=== PATIENT | female | born 1940 | race Caucasian/White ===

== ENCOUNTER 2016-06-07 19:26 | Emergency (ER) | payer MEDICARE ==
[2016-06-07 20:00] VITALS: BP 160/70
[2016-06-07] MEDS ORDERED: Amoxicillin/Clavulanate TAB* 500 MG PO ONE (20:13)
--- NOTE | 2016-06-07 20:16 | UC ---
Skin Complaint HPI - HPI Summary HPI Summary: pt presents with c/o left sided face pain and rash. Pt reports that she had a "sore" in left nostril that she had been treting at home with topical antibiotic ointment. Pt had colpocleisis surgery on 06/01/16. Is currently taking amoxicilin 500 mg Po q 12 hours. C/O of worsening pain and swelling and "hard lump" on left side of face. pain is now radiating along cheek to left ear. Pt has a past history of shingles. - History of Current Complaint Chief Complaint: UCSkin Time Seen by Provider: 06/07/16 19:56 Stated Complaint: RASH ON FACE Hx Obtained From: Patient ?: No Onset/Duration: Gradual Onset, Lasting Days Skin Exposure Onset/Duration: Days Ago Timing: Constant Onset Severity: Mild Current Severity: Moderate Location: Discrete, Face Character: Swelling, Redness, Painful Aggravating: Touch Alleviating: Cold Compresses Associated Signs & Symptoms: Positive: Tenderness Related History: Other: - recent surgery, under genral anesthesia - Allergy/Home Medications Allergies/Adverse Reactions: Allergies Allergy/AdvReac Type Severity Reaction Status Date / Time Codeine Allergy Intermediate shock Verified 06/07/16 19:33 Acetaminophen [From Tylenol] AdvReac Intermediate Nausea Verified 06/07/16 19:33 Levofloxacin [From Levaquin] AdvReac Intermediate cramps Verified 06/07/16 19:33 Meperidine [From Demerol HCl] AdvReac Intermediate hyper Verified 06/07/16 19:33 Home Medications: Home Medications Amoxicillin CAP* 1 cap DAILY 06/07/16 [History Confirmed 06/07/16] Enoxaparin(*) [Lovenox(*)] 70 mg INJ DAILY 06/07/16 [History Confirmed 06/07/16] Review of Systems Constitutional: Negative Skin: Rash, Other - tenderness ENT: Negative Respiratory: Negative Cardiovascular: Negative Gastrointestinal: Negative, Abdominal Pain - post op Genitourinary: Negative Motor: Negative Neurovascular: Negative Musculoskeletal: Negative Neurological: Negative Psychological: Negative All Other Systems Reviewed And Are Negative: Yes PMH/Surg Hx/FS Hx/Imm Hx Previously Healthy: No - see pmh Endocrine History Of: Denies: Diabetes Cardiovascular History Of: Reports: Cardiac Disorders - aortic valve, mitral valve replacement, Hypertension Denies: Congestive Heart Failure Respiratory History Of: Denies: Asthma GI/ History Of: Reports: Gall Bladder Disease - Surgical History Surgical History: Yes Surgery Procedure, Year, and Place: Choley, appy, tonsils, hyster, valve replacement x2, eye surgery. colpocleisis - Family History Known Family History: Positive: Cardiac Disease, Hypertension - Social History Alcohol Use: None Substance Use Type: None Smoking Status (MU): Never Smoked Tobacco - Immunization History Most Recent Influenza Vaccination: 2015 Most Recent Tetanus Shot: 2012 Most Recent Pneumonia Vaccination: within last 10 years Physical Exam Triage Information Reviewed: Yes Appearance: Pain Distress - mild Vital Signs: Initial Vital Signs Temp 98.3 F 06/07/16 19:41 Pulse 71 06/07/16 19:41 Resp 18 06/07/16 19:41 BP 182/72 06/07/16 19:41 Pulse Ox 100 06/07/16 19:41 Vital Signs Reviewed: Yes Eye Exam: Normal Neck exam: Normal Respiratory Exam: Normal Cardiovascular Exam: Other Cardiovascular: Positive: Murmur:Sys:Grade _?_/ Abdomen Description: Positive: Other: - multiple bruises on abdomen Musculoskeletal Exam: Normal Neurological Exam: Normal Psychological Exam: Normal Skin Exam: Other Skin: Positive: rashes, Other - palpable small, pea size, tender area on left facial cheek, tenderness with palpation on left side of cheek, that radiates to left ear and neck. Course/Dx - Course Course Of Treatment: I discussed with the pt the possibility of this being shingles. The pt became visibly unhappy and insisted that she had chronic sinusitis and was concerned that the "sore" in the left nostril has spread. Pt described that her sinuses felt as if they were "burning" inside. - Differential Diagnoses - Skin Complaint Differential Diagnoses: Abscess, Cellulitis - Diagnoses Provider Diagnoses: abscess, cystic acne. shingles. Discharge - Discharge Plan Condition: Stable Disposition: HOME Prescriptions: Amoxicillin/Clavulanate TAB* [Augmentin TAB 500 mg*] 500 mg PO BID #10 tab Patient Education Materials: Abscess (ED) Referrals: Alyson Escobar MD [Primary Care Provider] - Additional Instructions: Please follow up with your pCP as soon as possible. If symptoms worsen, please return to clinic or seek care at the closest health care facility.
== END 2016-06-07 20:35 | disposition home or self-care (01) ==
LOC: UCEAST 19:26
DX: L02.01 Cutaneous abscess of face (principal); L70.0 Acne vulgaris; B02.9 Zoster without complications; Z88.5 Allergy status to narcotic agent; Z88.6 Allergy status to analgesic agent; Z88.1 Allergy status to other antibiotic agents; Z95.2 Presence of prosthetic heart valve; Z90.49 Acquired absence of other specified parts of digestive tract
CPT/HCPCS: 99212; A9270-GY; G0463

== ENCOUNTER 2016-07-25 22:31 | Emergency (ER) | payer MEDICARE ==
[2016-07-25 23:56] LABS: Hematocrit 43 % (35-47); Hemoglobin 14.1 g/dl (12.0-16.0); Mean Corpuscular HGB Conc 33 g/dl (31-36); Mean Corpuscular Hemoglobin 28 pg (27-31); Mean Corpuscular Volume 85 fL (80-97); Mean Platelet Volume 10 um3 (7.4-10.4); Red Blood Count 5.08 10^6/ul (4.0-5.4); Red Cell Distribution Width 14 % (10.5-15); White Blood Count 9.4 10^3/ul (3.5-10.8)
[2016-07-26] MEDS ORDERED: Nitroglycerin 2% OINT* 1 GM PAK ONE (00:07)
[2016-07-26] MEDS ORDERED: Nitroglycerin 2% OINT* 1 GM PAK TOPICAL ONE (00:07)
[2016-07-26 00:15] LABS: Albumin 4.3 g/dL (3.2-5.2); BUN/Creatinine Ratio 21.9 (8-20); Calcium 9.4 mg/dL (8.6-10.3); EGFR Non-African American 90.2 (>60); Globulin 3.4 g/dL (2-4); Magnesium 2.2 mg/dL (1.9-2.7); Potassium 3.7 mmol/L (3.5-5.0); Total Bilirubin 0.7 mg/dL (0.2-1.0); Total Protein 7.7 g/dL (6.4-8.9)
[2016-07-26 00:16] LABS: Troponin I 0.01 ng/mL (<0.04)
--- NOTE | 2016-07-26 03:10 | ED ---
Gennaro Mckinley Adam, scribed for Truman Sebastian on 07/25/16 at 2323 . HPI Chest Pain - HPI Summary HPI Summary: Pt is a 76 year old female presenting with CP since 17:00. She states that she has the pain when she ambulates. She believes that the pain is due to indigestion. She states that every time she eats her BP rises. Pt states that she is scheduled for a stress test and cardiac catheterization "soon." Her last stress test was in 2013. She denies tobacco and alcohol use. FMHx of CHF (father ). - History of Current Complaint Chief Complaint: EDChestPainROMI Time Seen by Provider: 07/25/16 23:17 Hx Obtained From: Patient Onset/Duration: Started Hours Ago, Atraumatic, Still Present Timing: Constant Initial Severity: Moderate Current Severity: Moderate Chest Pain Location: Diffuse Chest Pain Radiates: No Character: Other: - Feels like indigestion Aggravating Factor(s): Other: - Food Alleviating Factor(s): Nothing Associated Signs and Symptoms: Positive: Negative - Allergy/Home Medications Allergies/Adverse Reactions: Allergies Allergy/AdvReac Type Severity Reaction Status Date / Time Codeine Allergy Intermediate shock Verified 07/26/16 00:03 Acetaminophen [From Tylenol] AdvReac Intermediate Nausea Verified 07/26/16 00:03 Levofloxacin [From Levaquin] AdvReac Intermediate cramps Verified 07/26/16 00:03 Meperidine [From Demerol HCl] AdvReac Intermediate hyper Verified 07/26/16 00:03 PMH/Surg Hx/FS Hx/Imm Hx Endocrine/Hematology History: Denies: Hx Diabetes Cardiovascular History: Reports: Hx Angina, Hx Hypertension, Hx Valvular Heart Disease - valve replacements, Other Cardiovascular Problems/Disorders Denies: Hx Congestive Heart Failure Respiratory History: Denies: Hx Asthma GI History: Reports: Hx Gall Bladder Disease, Hx Irritable Bowel, Other GI Disorders - APPENDECTOMY, CHOLECYSTECTOMY Musculoskeletal History: Reports: Other Musculoskeletal History - Fibromyalgia Denies: Hx Scoliosis Sensory History: Reports: Hx Contacts or Glasses, Hx Glaucoma Opthamlomology History: Reports: Hx Contacts or Glasses, Hx Glaucoma Neurological History: Denies: Other Neuro Impairments/Disorders - Surgical History Surgery Procedure, Year, and Place: Choley, appy, tonsils, hyster, valve replacement x2, eye surgery. colpocleisis - Immunization History Date of Tetanus Vaccine: PT STATES UNSURE Date of Influenza Vaccine: 2013 Infectious Disease History: Reports: Hx Shingles, History Other Infectious Disease - rheumatic fever Denies: Traveled Outside the [place] in Last 30 Days - Family History Known Family History: Positive: Cardiac Disease, Hypertension, Other - CHF - Social History Occupation: Retired Lives: Alone Alcohol Use: None Hx Substance Use: No Substance Use Type: Reports: None Hx Tobacco Use: No Smoking Status (MU): Never Smoked Tobacco Review of Systems Positive: Chest Pain Positive: Other - Indigestion All Other Systems Reviewed And Are Negative: Yes Physical Exam Triage Information Reviewed: Yes Vital Signs Reviewed: Yes Appearance: Positive: Well-Appearing, No Pain Distress Skin: Positive: Warm, Skin Color Reflects Adequate Perfusion, Dry Head/Face: Positive: Normal Head/Face Inspection Eyes: Positive: EOMI, MATTI ENT: Positive: Normal ENT inspection Neck: Positive: Supple, Nontender Respiratory/Lung Sounds: Positive: Clear to Auscultation, Breath Sounds Present Cardiovascular: Positive: RRR, Pulses are Symmetrical in both Upper and Lower Extremities Abdomen Description: Positive: Nontender, Soft Bowel Sounds: Positive: Present Musculoskeletal: Positive: Normal, Strength/ROM Intact Diagnostics - Laboratory Result Diagrams: 07/25/16 23:45 07/25/16 23:45 Lab Statement: Any lab studies that have been ordered have been reviewed, and results considered in the medical decision making process. - Radiology CXR Xray Interpretation: No Acute Changes Radiology Interpretation Completed By: ED Physician - EKG 22:41 Cardiac Rate: NL - 66 BPM EKG Rhythm: Sinus Rhythm EKG Interpretation: ST changes in anterior and lateral leads EKG Comparison: No Significant Change - Additional Comments Diagnostic Additional Comments: B-Natriuretic Peptide - 143 Troponin I - 0.01 Chest Pain Course/Dx - Course Course Of Treatment: 00:05 - Dr. Meadows (hospitalist) is aware of the patient. Dr. Meadows accepts admission of the patient. - Diagnoses Provider Diagnoses: Chest pain, Rule out RI Discharge - Discharge Plan Condition: Stable Disposition: ADMITTED TO [facility] documentation as recorded by the Gennaro hartmann Adam accurately reflects the service I personally performed and the decisions made by , Truman Sebastian.
[2016-07-26] MEDS ORDERED: Al Hydrox/Mg Hydrox/Simet LIQ* 30 ML UDC ONE (04:16)
[2016-07-26] MEDS ORDERED: Lidocaine 2% VISCOUS* 15 ML UDC ONE (04:16)
[2016-07-26] MEDS ORDERED: Lidocaine 2% VISCOUS* 15 ML UDC PO ONE (04:18)
[2016-07-26] MEDS ORDERED: Al Hydrox/Mg Hydrox/Simet LIQ* 30 ML UDC PO ONE (04:18)
--- NOTE | 2016-07-26 06:06 | ED ---
Gennaro Mckinley Adam, scribed for Truman Sebastian on 07/26/16 at 0605 . Progress - Progress Note Progress Note: 06:05 - Dr. Meadows (hospitalist) consult done in er and recommends that the patient be discharged because he thinks that the patient has no acute coronary syndrome at present. Course/Dx - Diagnoses Provider Diagnoses: Chest pain The documentation as recorded by the Gennaro hartmann Adam accurately reflects the service I personally performed and the decisions made by Jaz miramontes Emmanuel.
[2016-07-26] MEDS ORDERED: Pantoprazole IV* 40 MG IV ONE (06:22)
[2016-07-26] MEDS ORDERED: Pantoprazole IV* 40 MG ONE (06:23)
--- NOTE | 2016-07-26 06:27 | ED ---
Gennaro Mckinley Adam, scribed for Truman Sebastian on 07/26/16 at 0624 . Progress - Progress Note Progress Note: 06:20 - Patient is still having pain, so she will be signed out to Dr. Burdick at 07:00. A CT of the abdomen/pelvis has been ordered. Course/Dx - Diagnoses Provider Diagnoses: Chest pain, Abdominal pain The documentation as recorded by the Gennaro hartmann Adam accurately reflects the service I personally performed and the decisions made by Jaz miramontes Emmanuel.
[2016-07-26] MEDS ORDERED: Iohexol 350* (CONTRAST) 500 ML MDV IV ONE ×2 (06:38→07:22)
--- NOTE | 2016-07-26 08:35 | RAD ---
Indication: Chest pain. Contrast: Administered 200.2 ml of OMNIPAQUE 350 mgi/ml CTA of the chest, abdomen and pelvis was performed after IV contrast administration. Coronal, sagittal and 3-D reconstructive images were obtained. The origins of the great vessels are unremarkable. There is an atherosclerotic aorta noted. Mild ectasia of the ascending aorta is noted measuring up to 4.0 cm AP x 4.0 cm in width at the level of the right main pulmonary artery. Patient is status post aortic valve replacement. The descending aorta is normal measuring up to 2.2 x 2.7 cm. No evidence of aortic dissection is noted. The abdominal aorta demonstrates calcifications at the origins of the celiac axis, superior mesenteric artery and the renal arteries bilaterally. The common iliac arteries demonstrates normal bifurcation with atherosclerosis. No aneurysmal dilatation is noted. External iliac arteries are otherwise unremarkable. The pulmonary artery is well opacified. There are no filling defects present to suggest pulmonary embolus. The trachea and major bronchi appear patent. There is a nodule in the left upper lobe posteriorly measuring approximately 4 mm which is unchanged from previous exam of July 20, 2013 and is likely a benign finding. Vague appearing nodule is noted in the left lower lobe posteriorly also unchanged from previous exam measuring up to 8 mm. No alveolar consolidation is noted. Inferior thyroid lobes are unremarkable. No mediastinal or hilar adenopathy is noted. The liver is normal in size. It is diffusely decreased in density consistent with hepatic steatosis. The spleen is normal in size. The patient is status post cholecystectomy. The pancreas demonstrates no mass or pancreatic duct dilatation. Bilateral adrenal hyperplasia is noted. The kidneys demonstrate symmetric nephrograms with multiple low density lesions in the kidney. A hyperdense lesion is noted in the posterior cortex of left kidney. This was present on 2013 and measures approximately 16 mm. This previously measured 13 mm and has increased in size since previous exam. Correlation with ultrasound or MRI of the kidneys on a nonemergent basis may be helpful. Bilateral tiny cortical cysts are noted. No hydronephrosis of either kidney is noted. No retroperitoneal lymphadenopathy is noted. Small bowel demonstrates no abnormal dilatation. Colon is filled with stool. Urinary bladder is otherwise unremarkable. Uterus and ovaries are unremarkable. No inguinal hernias are noted. There is a small periumbilical hernia containing omentum. IMPRESSION: THERE IS NO EVIDENCE OF AORTIC DISSECTION PRESENT. MILD ECTASIA OF THE ASYMMETRY AORTA MEASURING 4 CM AT THE LEVEL OF THE RIGHT PULMONARY ARTERY APPEARS TO BE SIMILAR TO THAT SEEN ON JULY 20, 2013. PULMONARY NODULES IN THE LEFT UPPER LOBE AND LEFT LOWER LOBE ARE UNCHANGED AND ARE LIKELY BENIGN FINDINGS. THERE IS A HYPERDENSE NODULE IN THE POSTERIOR CORTEX OF THE LEFT KIDNEY MEASURING 16 MM IN WIDTH. THIS PREVIOUSLY MEASURED 13 MM. I CANNOT TOTALLY EXCLUDE A SOLID RENAL LESION. CORRELATION WITH ULTRASOUND AND/OR MRI THE KIDNEYS COULD BE PERFORMED CLINICALLY WARRANTED. NO EVIDENCE OF ABDOMINAL AORTIC ANEURYSM IS NOTED ALTHOUGH ATHEROSCLEROSIS AND CALCIFICATIONS OF THE ORIGINS OF THE CELIAC AXIS, SUPERIOR MESENTERIC ARTERY AND BOTH RENAL ARTERIES ARE PRESENT. 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
--- NOTE | 2016-07-26 09:11 | RAD ---
Indication: Chest pain. Single frontal view of the chest performed at 2350 hours was reviewed. Comparison is made with previous exam dated February 25, 2016. No mediastinal shift is noted. Heart is of normal size and configuration. Lung millan appear clear. Patient status post aortic valve replacement. No alveolar consolidation is noted. No significant change is noted since February 25, 2016. IMPRESSION: NO ACTIVE CARDIOPULMONARY DISEASE IS NOTED.
[2016-07-26] MEDS ORDERED: Ondansetron INJ* 2 MG/ML VIAL IV ONE (09:33)
--- NOTE | 2016-07-26 09:39 | PN ---
Hospitalist Progress Note F/U on previous consult done by Dr. Meadows Patient seen after CT scan that was relatively unremarkable. States pain began at 5 PM last night. She had some improvement at home with Gas-X. She says pain was improved after nitro and GI cocktail however still present. Mostly in epigastric area, was previously more significant in the chest. Pain in both areas are reproducible. Has hx of IBS and chronic GI issues. She has been having intermittent palpitations since her vaginal prolapse surgery 7 weeks and this is being worked up as an outpatient with Dr. Ho (her pocket secretary assembler). She came to the hospital because she was having the palpitations along with the pain and was worried about her heart. She said she has been very anxious lately due to her ongoing cardiac work-up for the palpitations. She has never been on an acid suppressing medication and has never had an upper endoscopy. She reports continued palpitations here in the hospital but tele is only significant for PVCs. EKG is unchanged from previous. I agree with Dr. Meadows and think the etiology of her pain is GI in nature. I spoke with Dr. Burdick and with Nicole (RN) and recommend trial of food and drink. She received protonix and should continue on oral PPI at home. I've ordered a 3rd troponin. If negative I do not think she needs any further work- up here in the hospital and should follow-up with her GI doctor and Head Of Art as an outpatient.
[2016-07-26] MEDS ORDERED: Simethicone CHEW TAB* 80 MG PO ONE (10:23)
[2016-07-26 12:43] VITALS: BP 146/63
--- NOTE | 2016-07-26 13:14 | CONS ---
CONSULTATION REPORT: DATE OF CONSULT: 07/26/16 CHIEF COMPLAINT: Epigastric pain. HISTORY OF PRESENT ILLNESS: The patient is a 76-year-old woman, who said she has been having trouble with her heart skipping beats, having epigastric pain, and she is supposed to go for nuclear stress test sometime in August with her doctor. She felt it is skipping earlier today. Her blood pressure was at home, she says. Then, she developed epigastric discomfort. She felt that there was too much gas in her stomach and this relieved by belching. She had had this before. It started at 5 p.m. It goes to her back and under her arm. It is tender to touch her belly. She denies any nausea or vomiting. The pain reached 9/10 in severity. She feels like it is gas, which she has also had before. She denies any other complaints. PAST MEDICAL HISTORY: Significant for hypertension, glaucoma, rheumatic heart disease. PAST SURGICAL HISTORY: Significant for mitral valve replacement, aortic valve replacement, tonsillectomy, cholecystectomy, appendectomy, and hysterectomy. MEDICATIONS: 1. Prasterone 25 mg daily. 2. Lovenox 70 mg injected daily. 3. Xalatan 1 drop right eye daily. 4. Alphagan 1 drop right eye twice daily. 5. Amlodipine 5 mg daily. 6. Coumadin 7.5 mg Wednesday, Wednesday, Wednesday, , Wednesday, Wednesday; 3.75 mg on Wednesday. 7. Estradiol 0.5 mg daily. 8. Losartan 100 mg daily. 9. Bisoprolol 10 mg daily. ALLERGIES: She has allergies to TYLENOL, CODEINE, LEVAQUIN, and DEMEROL FAMILY HISTORY: Mother had hypertension, colon cancer. Father had heart failure. SOCIAL HISTORY: No tobacco. Does drink alcohol occasionally. Lives alone, has children. Surrogate decision maker is her daughter, Indira Chowdary, and her other daughter Erika Evans. REVIEW OF SYSTEMS: A 14-point review of systems was completed with the patient. All pertinent positives and negatives are in the history of present illness, otherwise is negative. PHYSICAL EXAM: Pleasant woman, lying in bed, in no acute distress. Vital Signs : Blood pressure 109/41, pulse ox 98%, respiratory rate 17 breaths per minute, heart rate 80 beats per minute, temperature is 98.5 degrees. HEENT: Normocephalic, atraumatic. Pupils equal, round, and reactive to light. Moist mucous membranes. Neck: Supple. No JVD, bruits, palpable thyroid, or lymphadenopathy. Chest is clear to auscultation and percussion bilaterally. Cardiovascular: S1 and S2 appreciated. Regular rate and rhythm. Abdominal Exam: Positive bowel sounds in all 4 quadrants and soft. It is tender in the mid epigastric area, but no rebound, no guarding, no rigidity. Extremities: No cyanosis, clubbing, or edema. +2 peripheral pulses bilaterally. Neuro: Alert and oriented x3. Moves all extremities. Skin: No rashes or abnormalities. DIAGNOSTIC STUDIES/LAB DATA: White count 9.4, hemoglobin 14.1, hematocrit 43, platelets are 265. Sodium 138, potassium 3.7, chloride 102, CO2 29, BUN 14, creatinine 0.64, glucose 194. Troponin is 0.01 first, second one is 0.00. INR 2.28. Chest x-ray shows no acute infiltrates. EKG shows normal sinus rhythm at 66 beats per minute, normal axis, some nonspecific ST-T wave changes. ASSESSMENT AND PLAN: Epigastric discomfort: I do not think this is remotely cardiac in nature, it is reproducible, it is relieved by belching. It feels like indigestion to the patient, and I suspect it truly is. I will give her a GI cocktail. I do not think she needs to be admitted especially with 2 negative troponins. She is scheduled to follow up with her primary care doctor and corporate law specialist in August for stress test as well. My recommendation is for the patient to receive medicine for indigestion and be discharged home and follow with her PCP and corporate law specialist as an outpatient. TIME SPENT: Over 65 minutes was spent on this consult, more than 40 minutes of which was spent in direct [id number] contact with the patient in evaluation, physical exam, counseling, and coordination of care. CC: Dr. Terry Aguayo* [id number]/CPS #: [id number] JORDAN
--- NOTE | 2016-07-26 17:48 | ED ---
Evelyn Mckinley Michael, scribed for Radha Burdick MD on 07/26/16 at 0845 . Progress - Progress Note Progress Note: 06:20 - Patient is still having pain, so she will be signed out to Dr. Burdick at 07:00. A CT of the abdomen/pelvis has been ordered. CT results are back, see results. 12:40: The pt was given food and the chest pain was still present afterward. Pt received IV protonix 80mg and simethicone and pt declines pain med including acetaminophen, stating adverse reaction to acetaminophen. Pt's chest pain and burping improve when pt sits upright. She also c/o abd pain, LUQ. The patient's significant findings from the CT and lab results have been discussed thoroughly with the patient. Discussed renal lesion that needs definite follow up with further imaginng, hepatic steatosis, ASHD and ectasia in aorta, and calcifications in abd arteries. Pt has two negative troponins, and normal lactate, and is able to eat and pt advised no emergency condition at this time. Daughter is present for entire discussion and copies of labs and xray studies are given to pt. Pt is not hypertensive or tachycardic at the time of this discussion. Pt advised if she develops new, worsening or recurrent symptoms to return to ED for evaluation. Given RX for pantoprazole and advised re: anti- GERD measures, and need for possible endoscopy to eval for gastritis/PUD. Daughter and pt voice understanding of these instructions. The pt will be discharged home and will follow up with her electrical maintenance mechanic and is referred to a account liaison. PE: Appearance: Well-appearing, pain distress, Well-nourished Eyes: Conjunctiva clear ENT: Normal Neck: Supple Respiratory: Lungs clear, Normal breath sounds, no respiratory distress Cardio: RRR, No murmur, pulses normal, brisk capillary refill Abdomen: soft, nontender, negative splenomegaly Bowel sounds: present Musculoskeletal: Strength Intact, ROM intact Neuro: Alert, muscle tone normal Psychological: Normal Skin: Normal - Results/Orders Results/Orders: CTA CHEST/ABD/PEL: RADIOLOGIST-THERE IS NO EVIDENCE OF AORTIC DISSECTION PRESENT. MILD ECTASIA OF THE ASYMMETRY AORTA MEASURING 4 CM AT THE LEVEL OF THE RIGHT PULMONARY ARTERY APPEARS TO BE SIMILAR TO THAT SEEN ON JULY 20, 2013. PULMONARY NODULES IN THE LEFT UPPER LOBE AND LEFT LOWER LOBE ARE UNCHANGED AND ARE LIKELY BENIGN FINDINGS. THERE IS A HYPERDENSE NODULE IN THE POSTERIOR CORTEX OF THE LEFT KIDNEY MEASURING 16 MM IN WIDTH. THIS PREVIOUSLY MEASURED 13 MM. I CANNOT TOTALLY EXCLUDE A SOLID RENAL LESION. CORRELATION WITH ULTRASOUND AND/OR MRI THE KIDNEYS COULD BE PERFORMED CLINICALLY WARRANTED. NO EVIDENCE OF ABDOMINAL AORTIC ANEURYSM IS NOTED ALTHOUGH ATHEROSCLEROSIS AND CALCIFICATIONS OF THE ORIGINS OF THE CELIAC AXIS, SUPERIOR MESENTERIC ARTERY AND BOTH RENAL ARTERIES ARE PRESENT. 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 Course/Dx - Course Course Of Treatment: 00:05 - Dr. Meadows (hospitalist) is aware of the patient. Dr. Winter consulted the patient. The patient will be discharged home with follow up to Concession Worker and Minister Assistant - Diagnoses Provider Diagnoses: Chest pain, Abdominal pain, GERD (gastroesophageal reflux disease), Kidney lesion, Hepatic steatosis, ASHD (arteriosclerotic heart disease) The documentation as recorded by the Evelyn hartmann Michael accurately reflects the service I personally performed and the decisions made by Gennaro miramontes Barbara J, MD.
== END 2016-07-26 12:52 | disposition home or self-care (01) ==
LOC: ED 22:31
DX: R07.9 Chest pain, unspecified (principal); R10.13 Epigastric pain; I10 Essential (primary) hypertension; M79.7 Fibromyalgia
CPT/HCPCS: 36415; 71010; 71275; 74174; 80053; 83605; 83735; 83880; 84484; 85025; 85610; 85730; 93005; 96374; 96375; 99285; A9270-GY; Q9967

== ENCOUNTER 2016-11-19 20:17 | Emergency (ER) | payer MEDICARE ==
[2016-11-19 20:23] VITALS: BP 184/68
--- NOTE | 2016-11-19 20:43 | UC ---
Dental HPI - HPI Summary HPI Summary: patient injured right lower gum while flossing areas feels swollen and tender - History of Current Complaint Chief Complaint: UCDentalProblem Stated Complaint: DENTAL COMPLAINT Time Seen by Provider: 11/19/16 20:42 Hx Obtained From: Patient ?: No Onset/Duration: Sudden Onset, Lasting Days - 1, Still Present Severity: Moderate Pain Intensity: 5 Pain Scale Used: 0-10 Numeric Aggravating: Nothing Alleviating: Nothing Related History: Swelling - Allergies/Home Medications Allergies/Adverse Reactions: Allergies Allergy/AdvReac Type Severity Reaction Status Date / Time Codeine Allergy Intermediate shock Verified 11/19/16 20:23 Acetaminophen [From Tylenol] AdvReac Intermediate Nausea Verified 11/19/16 20:23 Levofloxacin [From Levaquin] AdvReac Intermediate cramps Verified 11/19/16 20:23 Meperidine [From Demerol HCl] AdvReac Intermediate hyper Verified 11/19/16 20:23 PMH/Surg Hx/FS Hx/Imm Hx Previously Healthy: No Cardiovascular History: Hypertension - Surgical History Surgical History: Yes Surgery Procedure, Year, and Place: Choley, appy, tonsils, hyster, valve replacement x2, eye surgery. colpocleisis - Family History Known Family History: Positive: Cardiac Disease, Hypertension, Other - CHF - Social History Occupation: Retired Lives: With Family Alcohol Use: None Substance Use Type: None Smoking Status (MU): Never Smoked Tobacco - Immunization History Most Recent Influenza Vaccination: 2016 Most Recent Tetanus Shot: 2013 Most Recent Pneumonia Vaccination: within last 10 years Review of Systems Constitutional: Fever Skin: Negative Eyes: Negative ENT: Dental Pain Respiratory: Negative Cardiovascular: Negative Gastrointestinal: Negative Genitourinary: Negative Motor: Negative Neurovascular: Negative Musculoskeletal: Negative Neurological: Negative Psychological: Negative All Other Systems Reviewed And Are Negative: Yes Physical Exam Triage Information Reviewed: Yes Appearance: Well-Appearing, No Pain Distress, Well-Nourished Vital Signs: Initial Vital Signs Temp 98.3 F 11/19/16 20:19 Pulse 65 11/19/16 20:19 Resp 16 11/19/16 20:19 BP 184/68 11/19/16 20:19 Pulse Ox 99 11/19/16 20:19 Vital Signs Reviewed: Yes Eye Exam: Normal Eyes: Positive: Conjunctiva Clear ENT Exam: Normal ENT: Positive: Normal ENT inspection, Hearing grossly normal. Negative: Nasal congestion, Nasal drainage, Trismus, Muffled/hoarse voice Dental Exam: Normal Neck exam: Normal Neck: Positive: Supple, Nontender, No Lymphadenopathy Respiratory Exam: Normal Respiratory: Positive: Normal breath sounds, No respiratory distress Cardiovascular Exam: Normal Cardiovascular: Positive: RRR, Pulses Normal, Brisk Capillary Refill Musculoskeletal Exam: Normal Musculoskeletal: Positive: Strength Intact, ROM Intact, No Edema Neurological Exam: Normal Neurological: Positive: Alert, Muscle Tone Normal Psychological Exam: Normal Skin Exam: Normal Dental Complaint Course/Dx - Course Course Of Treatment: Augmentin, chlorhexadine rince, follow with coumadin clinic in am, follow with dentist - Differential Dx/Diagnosis Differential Diagnosis/Dx: Dental Abscess, Odontogenic Pain, Peridontic Disease Provider Diagnoses: right lower gum injury with infection Discharge - Discharge Plan Condition: Stable Disposition: HOME Prescriptions: Amoxicillin/Clavulanate TAB* [Augmentin TAB 500 mg*] 500 mg PO TID #30 tab Chlorhexidine MOUTHWASH 0.12%* [Peridex Mouth Wash 0.12%*] 15 ml .SEE ORDER BID #[id number] oral.soln Patient Education Materials: Dental Abscess (ED) Referrals: Terry Aguayo MD [Primary Care Provider] - 1 Week Additional Instructions: Notify Coumadin Clinic of Antibiotics
[2016-11-19] MEDS ORDERED: Amoxicillin/Clavulanate TAB* 500 MG PO ONE (20:50)
== END 2016-11-19 20:59 | disposition home or self-care (01) ==
LOC: UCEAST 20:17
DX: S00.502A Unspecified superficial injury of oral cavity, initial encounter (principal); K05.10 Chronic gingivitis, plaque induced; X58.XXXA Exposure to other specified factors, initial encounter; Y93.9 Activity, unspecified; Y92.9 Unspecified place or not applicable; I10 Essential (primary) hypertension; Z90.49 Acquired absence of other specified parts of digestive tract; Z95.2 Presence of prosthetic heart valve; Z88.6 Allergy status to analgesic agent; Z88.5 Allergy status to narcotic agent; Z88.8 Allergy status to other drugs, medicaments and biological substances
CPT/HCPCS: 99212; A9270-GY; G0463

== ENCOUNTER 2017-03-17 09:57 | Day surgery (SDC) | payer MEDICARE ==
[~2017-03-17 09:57] MED LIST: Acetaminophen TAB* 325 MG PO PRN; Buffered Lidocaine 0.9% SYRIN* 5 ML/SYR SYRINGE INTRADERM ONE
[2017-03-17] MEDS ORDERED: Midazolam* 1 MG/ML 2 ML VIAL (2 MG) ONE ×2 (12:20→12:41)
[2017-03-17] MEDS ORDERED: Proparacaine 0.5% OPHTH.SOL* 15 ML BTL ONE (12:53)
[2017-03-17] MEDS ORDERED: Ketorolac 0.5% OPHTH (NF) 0.5 % 5 ML BTL ONE (12:53)
[2017-03-17] MEDS ORDERED: Lidocaine 1% MPF* 2 ML VIAL ONE (12:53)
[2017-03-17] MEDS ORDERED: Lidocaine 2% EPI 1:200000 MPF* 20 ML VIAL ONE (12:53)
[2017-03-17] MEDS ORDERED: Neomycin/Polymy/Dex OPTH.SUSP* MAXITROL 0.1% 5 ML ONE (12:53)
[2017-03-17] MEDS ORDERED: Phenylephrine 2.5% OPTH.SOL* 2 ML BTL ONE (12:53)
[2017-03-17] MEDS ORDERED: Cyclopentolate 1% OPTH.SOL* 2 ML BTL ONE (12:53)
[2017-03-17] MEDS ORDERED: acetaZOLAMIDE TAB* 250 MG ONE (12:53)
[2017-03-17] MEDS ORDERED: Povidone Iodine 5% OPTH* 30 ML BTL ONE (12:53)
[2017-03-17 13:23] VITALS: BP 111/53
--- NOTE | 2017-03-17 16:04 | OP ---
DATE OF OPERATION: 03/17/2017 - [facility] DATE OF : 1940. SURGEON: Tin Nassar M.D. PREOPERATIVE DIAGNOSIS: Cataract right eye. POSTOPERATIVE DIAGNOSIS: Cataract right eye. OPERATIVE PROCEDURE: Extracapsular cataract extraction with intraocular lens implant right eye. DESCRIPTION OF PROCEDURE: The patient was brought to the operating room after being given 1/2% Alcaine with epinephrine drops in the preoperative area. The eye was prepped and draped in the usual sterile fashion. Sterile drape and eyelid speculum were placed. Again, topical 1/2% Alcaine with epinephrine was given. A paracentesis incision was made at the 9 o'clock position with the No.75 blade. Clear cornea incision 2.2 x 2.2-mm was created at the 12 o'clock position starting at the anterior limbus using the 2.2-mm keratome. The anterior chamber was irrigated with 0.4 mL of 1% non-preservative intracameral lidocaine and filled with DisCoVisc. A capsulorrhexis was completed using the cystotome and the Utrata forceps. Hydrodissection was performed with balanced salt solution. The lens nucleus was removed with the Phacoemulsification handpiece without incident. Cortex was removed with the irrigation-aspiration handpiece. The capsular bag was re-inflated using DisCoVisc and an [id number] implant was inserted with the shooter. The irrigation-aspiration handpiece was used to remove all residual DisCoVisc. The eye was refilled with balanced salt solution and the wound checked and found to be watertight. Topical Maxitrol drops were given. [id number]/[facility] #: [id number] [facility]
== END 2017-03-17 13:16 | disposition home or self-care (01) ==
LOC: OREAST 09:57
PROVIDERS: ATTEND Specialist
DX: H25.811 Combined forms of age-related cataract, right eye (principal); H40.1112 Primary open-angle glaucoma, right eye, moderate stage; H25.812 Combined forms of age-related cataract, left eye; H40.1123 Primary open-angle glaucoma, left eye, severe stage; Z95.2 Presence of prosthetic heart valve; Z79.01 Long term (current) use of anticoagulants; I09.9 Rheumatic heart disease, unspecified; M79.7 Fibromyalgia; I10 Essential (primary) hypertension
CPT/HCPCS: A9270-GY; J2250; V2632

== ENCOUNTER 2017-03-24 10:08 | Day surgery (SDC) | payer MEDICARE ==
[~2017-03-24 10:08] MED LIST changes: -Acetaminophen TAB* 325 MG PO PRN; +Midazolam* 1 MG/ML 2 ML VIAL (2 MG) ONE
[2017-03-24] MEDS ORDERED: Neomycin/Polymy/Dex OPTH.SUSP* MAXITROL 0.1% 5 ML ONE (12:00)
[2017-03-24] MEDS ORDERED: Phenylephrine 2.5% OPTH.SOL* 2 ML BTL ONE (12:00)
[2017-03-24] MEDS ORDERED: acetaZOLAMIDE TAB* 250 MG ONE (12:00)
[2017-03-24] MEDS ORDERED: Lidocaine 1% MPF* 2 ML VIAL ONE (12:00)
[2017-03-24] MEDS ORDERED: Proparacaine 0.5% OPHTH.SOL* 15 ML BTL ONE (12:00)
[2017-03-24] MEDS ORDERED: Cyclopentolate 1% OPTH.SOL* 2 ML BTL ONE (12:00)
[2017-03-24] MEDS ORDERED: Povidone Iodine 5% OPTH* 30 ML BTL ONE (12:00)
[2017-03-24] MEDS ORDERED: Lidocaine 2% EPI 1:200000 MPF* 20 ML VIAL ONE (12:00)
[2017-03-24] MEDS ORDERED: Ketorolac 0.5% OPHTH (NF) 0.5 % 5 ML BTL ONE (12:00)
[2017-03-24] MEDS ORDERED: Midazolam* 1 MG/ML 2 ML VIAL (2 MG) ONE (12:33)
[2017-03-24 12:56] VITALS: BP 112/49
--- NOTE | 2017-03-24 16:38 | OP ---
DATE OF OPERATION: 03/24/2017 - [facility] DATE OF : 1940. SURGEON: Tin Nassar M.D. PREOPERATIVE DIAGNOSIS: Cataract left eye. POSTOPERATIVE DIAGNOSIS: Cataract left eye. OPERATIVE PROCEDURE: Extracapsular cataract extraction with intraocular lens implant left eye. DESCRIPTION OF PROCEDURE: The patient was brought to the operating room after being given 1/2% Alcaine with epinephrine drops in the preoperative area. The eye was prepped and draped in the usual sterile fashion. Sterile drape and eyelid speculum were placed. Again, topical 1/2% Alcaine with epinephrine was given. A paracentesis incision was made at the 3 o'clock position with the No.75 blade. Clear cornea incision 2.2 x 2.2-mm was created at the 6 o'clock position starting at the anterior limbus using the 2.2-mm keratome. The anterior chamber was irrigated with 0.4 mL of 1% non-preservative intracameral lidocaine and filled with DisCoVisc. A capsulorrhexis was completed using the cystotome and the Utrata forceps. Hydrodissection was performed with balanced salt solution. The lens nucleus was removed with the Phacoemulsification handpiece without incident. Cortex was removed with the irrigation-aspiration handpiece. The capsular bag was re-inflated using DisCoVisc and an [id number] implant was inserted with the shooter. The irrigation-aspiration handpiece was used to remove all residual DisCoVisc. The eye was refilled with balanced salt solution and the wound checked and found to be watertight. Topical Maxitrol drops were given. [id number]/[facility] #: [id number] [facility]
== END 2017-03-24 10:25 | disposition home or self-care (01) ==
LOC: OREAST 10:08
PROVIDERS: ATTEND Specialist
DX: H25.812 Combined forms of age-related cataract, left eye (principal); H40.1112 Primary open-angle glaucoma, right eye, moderate stage; H40.1123 Primary open-angle glaucoma, left eye, severe stage; Z95.2 Presence of prosthetic heart valve; Z79.01 Long term (current) use of anticoagulants; I10 Essential (primary) hypertension; R91.8 Other nonspecific abnormal finding of lung field; I09.9 Rheumatic heart disease, unspecified; M19.90 Unspecified osteoarthritis, unspecified site; K58.9 Irritable bowel syndrome, unspecified
CPT/HCPCS: A9270-GY; J2250; V2632

== ENCOUNTER 2017-05-13 13:06 | Emergency (ER) | payer MEDICARE ==
--- NOTE | 2017-05-13 14:22 | UC ---
Hip/Pelvis Pain - HPI Summary HPI Summary: 77 yo WF c/o left posterior buttock pain and LBP x 1 day c/o inability to ambulate due to severe pain. This pain is also complicated by left pelvic pain along her left inguinal ligament x 1 year after an undercorrected vaginal prolapse surgery s/p pessary insertion placed 1 year ago which she manually removed herself yesterday because she found it to be exacerbating her chieft complaint today. Also states she has some "unrinary retention" history according to a previous US done last year, per pt. DID not have f/u with her previous [facility] physician because he is "out of town" and is extremely reluctant to go to ER accompanied by her daughter. Currently the LBP and left inguinal pain is causing so much pain she is not able to ambulate on her own when normally she can and now she is in a wheelchair during this visit. - History Of Current Complaint Chief Complaint: UCGeneralIllness Stated Complaint: PAIN DOWN LEG Pain Intensity: 8 - Allergies/Home Medications Allergies/Adverse Reactions: Allergies Allergy/AdvReac Type Severity Reaction Status Date / Time codeine Allergy Shock Verified 05/13/17 13:38 lactose Allergy GI Verified 05/13/17 13:38 acetaminophen AdvReac Nausea Verified 05/13/17 13:38 levofloxacin [From Levaquin] AdvReac Cramps Verified 05/13/17 13:38 meperidine AdvReac Hyper Verified 05/13/17 13:38 Home Medications: Home Medications Oxycodone HCl/Acetaminophen [Oxycodon-Acetaminophen 2.5-325] 1 tab PO Q6HR PRN 05/13/17 [History Confirmed 05/13/17] PMH/Surg Hx/FS Hx/Imm Hx - Additional Past Medical History Additional PMH: 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 URINARY RETENTION DX'D BY US LAST YEAR FIBROMYALGIA Previously Healthy: No - SEE PMHX GI/ History: Other - VAGINAL PROLAPSE S/P SURGERY Other GI/ History: URINARY RETENTION PER ULTRASOUND DONE ONE YEAR AGO Other Psychological History: FIBROMYALGIA - Surgical History Surgical History: Yes Surgery Procedure, Year, and Place: Choley, appy, tonsils, hyster, valve replacement x2, eye surgery. colpocleisis - Family History Known Family History: Positive: Cardiac Disease, Hypertension, Other - CHF - Social History Alcohol Use: None Substance Use Type: None Smoking Status (MU): Never Smoked Tobacco - Immunization History Most Recent Influenza Vaccination: 2016 Most Recent Tetanus Shot: 2013 Most Recent Pneumonia Vaccination: within last 10 years Review of Systems Constitutional: Negative Skin: Negative Eyes: Negative ENT: Negative Respiratory: Negative Cardiovascular: Negative Gastrointestinal: Negative Genitourinary: Other - lower abd distention, left inguinal pain Motor: Negative Neurovascular: Other - left LBP and left buttock pain radiating down left lower leg Musculoskeletal: Decreased ROM - NOT ABLE TO AMUBULATE DUE TO ACUTE LBP SPASM EXACERBATED BY SCIATICA ON LEFT SIDE, Other: Neurological: Negative Psychological: Negative All Other Systems Reviewed And Are Negative: Yes Physical Exam Triage Information Reviewed: Yes Appearance: Ill-Appearing Vital Signs: Initial Vital Signs Temp 36.9 C 05/13/17 13:28 Pulse 64 05/13/17 13:28 Resp 20 05/13/17 13:28 BP 179/70 05/13/17 13:28 Pulse Ox 99 05/13/17 13:28 Eye Exam: Normal ENT Exam: Normal Dental Exam: Normal Neck exam: Normal Neck: Positive: 1 Respiratory Exam: Normal Cardiovascular Exam: Normal Abdominal Exam: Normal Abdomen Description: Positive: Other: - MILD LOW ABDMINAL DISTENSION, NO TENDERNESS Musculoskeletal Exam: Normal Musculoskeletal: Positive: ROM Limited @, Other: - LEFT BUTTOCK PAIN ON MOVEMENT OF LEFT LOWER EXTREMITY WITH RADICULOPATHY Neurological Exam: Normal Psychological Exam: Normal Skin Exam: Normal Hip Injury Course/Dx - Course Course Of Treatment: Pt is presenting with TWO separate complaints today: 1- left pelvic pain along the left inguinal ligament likely due to ongoing issues with undercorrected vaginal prolapse. CHRONIC LEFT PELVIC PAIN S/P VAGINAL PROLAPSE SURGERY WITH PESSARY INSERTION NOW STILL UNCHANGED After self pessary removal yesterday. Renal and bladder US ordered to assess for anatomical abnormality to explain this pelvic pain which is exacerbating current low back/ left buttock spasm. If renal and bladder US is done, pt is reminded to follow up with a urologist/ [facility] [facility] for further evaluation for chronic left pelvic pain. 2 -Acute low back/buttock muscle spasm exacerbating chronic sciatica on Left side- . Pt was given PO prednisone 20mg x1 for acute muscle spasm and will d/c her home on Medrol dose kirti. Care endorsed to Roselia Ellis, that after the renal US is done , Pt is to follow up with [facility]ANT or urologist in THIS area, close to her home. pt to be d/c'd after ultrasound done and is resulted. - Differential Dx/Diagnosis Differential Diagnosis/HQI/PQRI: Sciatica, Sprain, Strain, Tenosynovitis, Other - post surgical pelvic pain after undercorrected vaginal prolapse correction surgery Provider Diagnoses: ACUTE LOW BACK SPASM EXACERBATING SCIATICA. SCIATICA. LEFT PELVIC PAIN Discharge - Discharge Plan Condition: Stable Disposition: OTHER Discharge Disposition Comment: Care endorsed to Roselia Ellis, D/c after US done an resulted Prescriptions: methylPREDNISolone [Medrol Dosepak 4 MG*] 4 mg PO .SEE KIRTI INSTRUCTION 6 Days # 1 packet Patient Education Materials: Chronic Urinary Retention in Women (ED), Muscle Spasm (ED) Referrals: Dede KUMAR,Terry [Primary Care Provider] -
[2017-05-13] MEDS ORDERED: predniSONE TAB* 20 MG PO ONE (14:39)
--- NOTE | 2017-05-13 16:15 | RAD ---
HISTORY: Left pelvic pain COMPARISONS: December 04, 2016 TECHNIQUE: Multiple transverse and longitudinal ultrasound images were obtained of the kidneys and bladder using grayscale and color Doppler imaging. FINDINGS: The study is technically limited secondary to patient physical condition. RIGHT KIDNEY: There is a simple cyst of the upper pole of the right kidney measuring approximately 1 cm in size. There is no hydronephrosis or nephrolithiasis. The right kidney measures 11.9 x 3.8 x 4.9 cm. LEFT KIDNEY: There are multiple stable cysts of the left kidney measuring up to 2.2 cm in size. 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 There is no hydronephrosis or nephrolithiasis. The left kidney measures 10.9 x 5 x 4.9 cm. BLADDER: The bladder is smooth in contour. Bilateral ureteral jets are identified. The prevoid bladder volume is 510 milliliters.. The postvoid bladder volume is 120 milliliters. AORTA AND IVC: No images are submitted of the vasculature. RETROPERITONEUM: Unremarkable. OTHER: None. IMPRESSION: 1. NO HYDRONEPHROSIS OR NEPHROLITHIASIS. 2. 120 ML POST VOID RESIDUAL
[2017-05-13 16:33] VITALS: BP 158/71
== END 2017-05-13 16:38 ==
LOC: UCEAST 13:06
DX: M54.42 Lumbago with sciatica, left side (principal); M62.830 Muscle spasm of back; R10.2 Pelvic and perineal pain; R14.0 Abdominal distension (gaseous); M79.7 Fibromyalgia; Z95.2 Presence of prosthetic heart valve; Z79.01 Long term (current) use of anticoagulants; Z90.49 Acquired absence of other specified parts of digestive tract; Z90.710 Acquired absence of both cervix and uterus; Z88.6 Allergy status to analgesic agent; Z88.1 Allergy status to other antibiotic agents; Z88.5 Allergy status to narcotic agent
CPT/HCPCS: 76770; 81003; 99212; G0463; J7512

== ENCOUNTER 2017-06-01 21:13 | Observation (INO) | payer MEDICARE ==
--- NOTE | 2017-06-01 21:30 | ED ---
Back Pain - HPI Summary HPI Summary: She presents to the ED with diffuse low back pain worse to the left which radiates down the leg causing intermittent numbness and tingling. She also notes to radiation of pain to the upper inner thigh which has been intermittent for several months and worse over the past 2 days. Pain is 10 out of 10 and unbearable. She states she is unable to ambulate well, and she is unable to sleep at night due to the pain. She was given tramadol by her PCP Dr. Escobar but after researching side effects she decided not to use this medication and gave it away. This pain is also complicated by left pelvic pain along her left inguinal ligament which is been present approximately one year after vaginal prolapse surgery after pessary insertion. She removed this pessary herself approximately 3 weeks ago after she thought it was exacerbating her symptoms. While she states she has had some urinary retention since the prolapse surgery, she denies any incontinence or dysfunction. Denies any bowel dysfunction as well. She has not followed up with an [facility] in over a year. Denies any weakness to the bilateral lower extremities. Pain is most prominent over the low back buttock muscle specifically over to the left side. Renal and bladder ultrasound performed approximately 1 month ago. This shows multiple stable stenosis of the left kidney measuring up to 2.2 cm in size. Prevoid bladder volume is 510 mL. The postvoid bladder volume is 120 mL. - History of Current Complaint Chief Complaint: EDBackInjuryPain Stated Complaint: GENERAL ILLNESS Hx Obtained From: Patient Onset/Duration: Sudden Onset Onset/Duration: Started Weeks Ago Timing: Constant Back Pain Location: Is Discrete @ - Left lower back into the buttocks Severity Initially: Severe Severity Currently: Severe Pain Intensity: 7 Pain Scale Used: 0-10 Numeric Aggravating Symptom(s): Bending Alleviating Symptom(s): Nothing Associated Signs And Symptoms: Positive: Pain with Weight Bearing. Negative: Swelling, Redness, Bruising, Bladder Incontinence, Weight Loss - Risk Factors AAA Risk Factors: Negative TAD Risk Factors: Negative Cauda Equina Risk Factors: Negative Epidural Abscess Risk Factors: Negative - Allergies/Home Medications Allergies/Adverse Reactions: Allergies Allergy/AdvReac Type Severity Reaction Status Date / Time codeine Allergy Shock Verified 05/13/17 13:38 lactose Allergy GI Verified 05/13/17 13:38 acetaminophen AdvReac Nausea Verified 05/13/17 13:38 levofloxacin [From Levaquin] AdvReac Cramps Verified 05/13/17 13:38 meperidine AdvReac Hyper Verified 05/13/17 13:38 PMH/Surg Hx/FS Hx/Imm Hx Previously Healthy: Yes Endocrine/Hematology History: Denies: Hx Diabetes Cardiovascular History: Reports: Hx Angina, Hx Cardiomegaly - slightly, Hx Hypertension, Hx Rheumatic Fever - as a child, Hx Valvular Heart Disease - valve replacements, Other Cardiovascular Problems/Disorders Denies: Hx Congestive Heart Failure Respiratory History: Denies: Hx Asthma GI History: Reports: Hx Gall Bladder Disease, Hx Irritable Bowel, Other GI Disorders - APPENDECTOMY, CHOLECYSTECTOMY History: Denies: Hx Dialysis, Hx Renal Disease Musculoskeletal History: Reports: Hx Arthritis, Hx Tendonitis, Other Musculoskeletal History - Fibromyalgia Denies: Hx Scoliosis Sensory History: Reports: Hx Cataracts, Hx Contacts or Glasses, Hx Glaucoma Denies: Hx Hearing Aid Opthamlomology History: Reports: Hx Cataracts, Hx Contacts or Glasses, Hx Glaucoma Neurological History: Reports: Hx Nerve Disease - fibromyalgia Denies: Other Neuro Impairments/Disorders - Cancer History Hx Chemotherapy: No - Surgical History Surgery Procedure, Year, and Place: Choley, appy, tonsils, hyster, valve replacement x2, eye surgery. colpocleisis Hx Anesthesia Reactions: No - Immunization History Date of Tetanus Vaccine: PT STATES UNSURE Date of Influenza Vaccine: 2012 Hx Pertussis Vaccination: No Immunizations Up to Date: Unable to Obtain/Confirm Infectious Disease History: No Infectious Disease History: Reports: Hx Shingles, History Other Infectious Disease - rheumatic fever Denies: Traveled Outside the [place] in Last 30 Days - Family History Known Family History: Positive: Cardiac Disease, Hypertension, Other - CHF - Social History Occupation: Unemployed Lives: With Family Alcohol Use: None Hx Substance Use: No Substance Use Type: Reports: None Hx Tobacco Use: No Smoking Status (MU): Never Smoked Tobacco Review of Systems Constitutional: Negative Negative: Fever, Chills, Fatigue Eyes: Negative Cardiovascular: Negative Respiratory: Negative Genitourinary: Negative Positive: no symptoms reported, see HPI Positive: Arthralgia Positive: Paresthesia, Numbness Psychological: Normal All Other Systems Reviewed And Are Negative: Yes Physical Exam Triage Information Reviewed: Yes Vital Signs On Initial Exam: Initial Vitals Temp Pulse Resp BP Pulse Ox 99.2 F 72 18 149/67 96 06/01/17 21:19 06/01/17 21:19 06/01/17 21:19 06/01/17 21:19 06/01/17 21:19 Vital Signs Reviewed: Yes Appearance: Positive: Ill-Appearing, Pain Distress Skin: Positive: Skin Color Reflects Adequate Perfusion Head/Face: Positive: Normal Head/Face Inspection Eyes: Positive: EOMI, MATTI, Conjunctiva Clear Neck: Positive: Supple, Nontender, No Lymphadenopathy Respiratory/Lung Sounds: Positive: Clear to Auscultation, Breath Sounds Present Cardiovascular: Positive: Normal, RRR, Pulses are Symmetrical in both Upper and Lower Extremities Musculoskeletal: Positive: Pain @ - Left lower back extending into the buttocks and down the leg. Negative: Irver Sign Left, River Sign Right, Edema Left, Edema Right Neurological: Positive: Speech Normal Psychiatric: Positive: Normal, Affect/Mood Appropriate AVPU Assessment: Alert Diagnostics - Vital Signs Vital Signs Temp Pulse Resp BP Pulse Ox 06/01/17 21:19 99.2 F 72 18 149/67 96 - Laboratory Lab Statement: Any lab studies that have been ordered have been reviewed, and results considered in the medical decision making process. Back Pain Course/Dx - Course Course Of Treatment: During the course of treatment the patient is evaluated for left lower back pain which radiates down the buttocks into the left lower leg down to the foot with numbness and tingling also radiating to the left inner thigh along the L1. Denies any bladder or bowel dysfunction, however has had some complications with retention since a uncorrected bladder surgery one year ago. She has since removed the pessary herself. She has been seen 3 times for this pain and has been given tramadol in the past but has not taken it due to fear of side effects and addiction. I have offered her the same medication as it is safer than opioids. She is agreeable to this at this stage as she is stating the pain is 10 out of 10. She is able to sit up and ambulate , but with severe pain. I have offered a CT scan and she agrees. CT scan shows degenerative disc disease and osteoarthritis. Moderate to severe narrowing of central canal at L4-L5 with mild narrowing at L3-L4 and L5-S1. Multilevel neural foraminal narrowing as described above. Atherosclerosis. No other pathology to explain pain is seen on exam. However, I have advised CT scan will not be able to give us a great picture of neuropathies. She may need an MRI in the near future and I have discussed this with the patient and she agrees. Without bladder or bowel dysfunction and/or other weakness involved, I do not believe she needs an emergent MRI at this stage. I have advised her to call her PCP tomorrow morning to follow up as soon as possible, continue PT as scheduled and I will give her tramadol as pain control. Heat packs and slow gentle low back exercises are also explained to the patient. - Diagnoses Provider Diagnoses: Sciatica, Piriformis syndrome Discharge - Discharge Plan Condition: Stable Disposition: HOME Patient Education Materials: Sciatica (ED), Piriformis Syndrome (ED) Referrals: Dede KUMAR,Terry [Primary Care Provider] -
[2017-06-01] MEDS ORDERED: Cyclobenzaprine TAB* 10 MG PO ONE (21:59)
[2017-06-01] MEDS ORDERED: predniSONE TAB* 20 MG PO ONE (21:59)
[2017-06-01] MEDS ORDERED: oxyCODONE/Acetamin 5/325 MG* TAB PO ONE (21:59)
[2017-06-01] MEDS ORDERED: oxyCODONE TAB* 5 MG TAB ONE (23:19)
[2017-06-01] MEDS ORDERED: oxyCODONE TAB* 5 MG TAB PO ONE (23:21)
[2017-06-02] MEDS ORDERED: Morphine INJ* 4 MG/ML 1 ML SYRINGE (NEW SYRINGE VERSION) IV ONE (00:27)
[2017-06-02] MEDS ORDERED: Ondansetron INJ* 2 MG/ML VIAL IV ONE (00:28)
[2017-06-02 01:22] LABS: ABS Basophils 0.1 10^3/ul (0-0.2); ABS Eosinophils 0.1 10^3/ul (0-0.6); ABS Lymphocytes 0.8 10^3/ul (1.0-4.8); ABS Monocytes 0.7 10^3/ul (0-0.8); ABS Neutrophils 6.4 10^3/ul (1.5-7.7); ABS Nucleated RBC 0 10^3/ul; Eosinophil % 0.9 % (0-6); Hematocrit 42 % (35-47); Hemoglobin 14.2 g/dl (12.0-16.0); Mean Corpuscular HGB Conc 34 g/dl (31-36); Mean Corpuscular Hemoglobin 29 pg (27-31); Mean Corpuscular Volume 87 fL (80-97); Mean Platelet Volume 10 um3 (7.4-10.4); Nucleated Red Blood Cells % 0; Platelet Count 172 10^3/ul (150-450); Red Blood Count 4.86 10^6/ul (4.0-5.4); Red Cell Distribution Width 14 % (10.5-15); White Blood Count 8.1 10^3/ul (3.5-10.8)
--- NOTE | 2017-06-02 01:54 | ED ---
Christiano Mckinley Angela, scribed for Liam Sebastian MD on 06/01/17 at 2157 . Back Pain - HPI Summary HPI Summary: This pt is a 77 y/o female presenting to [facility] via EMS c/o low back pain radiating down the left leg. She denies any trauma or injury. Pt reports she has had intermittent sciatica pain since last fall. Pt notes her pain has gradually worsened over the last few months. She has been doing physical therapy with mild relief. Denies any urinary or bowel dysfunction, weakness in bilateral LE. She was last seen in the ED yesterday and had a cat scan. Pt has been taking Tramadol and Gabapentin. She took 2 Tramadol today, last one was at 17:00. She took one 300 mg gabapentin today, but states she was prescribed TID. Pt notes Gabapentin is a new medication. She is currently on Coumadin. - History of Current Complaint Chief Complaint: EDBackInjuryPain Stated Complaint: GENERAL ILLNESS Time Seen by Provider: 06/01/17 21:41 Hx Obtained From: Patient Onset/Duration: Lasting Weeks, Still Present Onset/Duration: Started Weeks Ago Timing: Constant Back Pain Location: Is Discrete @ - Left lower back, Radiates To - left leg Severity Initially: Severe Severity Currently: Severe Pain Intensity: 7 Pain Scale Used: 0-10 Numeric Aggravating Symptom(s): Bending Alleviating Symptom(s): Nothing Associated Signs And Symptoms: Positive: Pain with Weight Bearing. Negative: Swelling, Redness, Bruising, Bladder Incontinence, Weight Loss - Allergies/Home Medications Allergies/Adverse Reactions: Allergies Allergy/AdvReac Type Severity Reaction Status Date / Time codeine Allergy Shock Verified 06/02/17 01:05 lactose Allergy GI Verified 06/02/17 01:05 acetaminophen AdvReac Nausea Verified 06/02/17 01:05 levofloxacin [From Levaquin] AdvReac Cramps Verified 06/02/17 01:05 meperidine AdvReac Hyper Verified 06/02/17 01:05 PMH/Surg Hx/FS Hx/Imm Hx Endocrine/Hematology History: Denies: Hx Diabetes Cardiovascular History: Reports: Hx Angina, Hx Cardiomegaly - slightly, Hx Hypertension, Hx Rheumatic Fever - as a child, Hx Valvular Heart Disease - valve replacements, Other Cardiovascular Problems/Disorders Denies: Hx Congestive Heart Failure Respiratory History: Denies: Hx Asthma GI History: Reports: Hx Gall Bladder Disease, Hx Irritable Bowel, Other GI Disorders - APPENDECTOMY, CHOLECYSTECTOMY History: Denies: Hx Dialysis, Hx Renal Disease Musculoskeletal History: Reports: Hx Arthritis, Hx Tendonitis, Other Musculoskeletal History - Fibromyalgia Denies: Hx Scoliosis Sensory History: Reports: Hx Cataracts, Hx Contacts or Glasses, Hx Glaucoma Denies: Hx Hearing Aid Opthamlomology History: Reports: Hx Cataracts, Hx Contacts or Glasses, Hx Glaucoma Neurological History: Reports: Hx Nerve Disease - fibromyalgia Denies: Other Neuro Impairments/Disorders - Cancer History Hx Chemotherapy: No - Surgical History Surgery Procedure, Year, and Place: Choley, appy, tonsils, hyster, valve replacement x2, eye surgery. [email or web address] Hx Anesthesia Reactions: No - Immunization History Date of Tetanus Vaccine: PT STATES UNSURE Date of Influenza Vaccine: 2012 Immunizations Up to Date: Unable to Obtain/Confirm Infectious Disease History: No Infectious Disease History: Reports: Hx Shingles, History Other Infectious Disease - rheumatic fever Denies: Traveled Outside the [place] in Last 30 Days - Family History Known Family History: Positive: Cardiac Disease, Hypertension, Other - CHF - Social History Occupation: Unemployed Lives: With Family Alcohol Use: None Hx Substance Use: No Substance Use Type: Reports: None Hx Tobacco Use: No Smoking Status (MU): Never Smoked Tobacco Review of Systems Negative: Fever, Chills Eyes: Negative Cardiovascular: Negative Respiratory: Negative Negative: incontinence Musculoskeletal: Other - low back pain Negative: Weakness All Other Systems Reviewed And Are Negative: Yes Physical Exam - Summary Physical Exam Summary: VITAL SIGNS: Reviewed. GENERAL: Patient is a well-developed and nourished female who is lying comfortable in the stretcher. Patient is not in any acute respiratory distress. HEAD AND FACE: No signs of trauma. No ecchymosis, hematomas or skull depressions. No sinus tenderness. EYES: PERRLA, EOMI x 2, No injected conjunctiva, no nystagmus. EARS: Hearing grossly intact. Ear canals and tympanic membranes are within normal limits. MOUTH: Oropharynx within normal limits. NECK: Supple, trachea is midline, no adenopathy, no JVD, no carotid bruit, no c- spine tenderness, neck with full ROM. CHEST: Symmetric, no tenderness at palpation LUNGS: Clear to auscultation bilaterally. No wheezing or crackles. CVS: Regular rate and rhythm, S1 and S2 present, no murmurs or gallops appreciated. ABDOMEN: Soft, non-tender. No signs of distention. No rebound no guarding, and no masses palpated. Bowel sounds are normal. EXT: FROM in all major joints, no edema, no cyanosis or clubbing. Lower back tenderness. Left straight leg raise is positive at 80 degrees. NEURO: Alert and oriented x 3. No acute neurological deficits. Speech is normal and follows commands. SKIN: Dry and warm Triage Information Reviewed: Yes Vital Signs On Initial Exam: Initial Vitals Temp Pulse Resp BP Pulse Ox 99.2 F 72 18 149/67 96 06/01/17 21:19 06/01/17 21:19 06/01/17 21:19 06/01/17 21:19 06/01/17 21:19 Vital Signs Reviewed: Yes Diagnostics - Vital Signs Vital Signs Temp Pulse Resp BP Pulse Ox 06/01/17 21:30 69 144/52 96 06/01/17 21:25 70 95 06/01/17 21:24 150/59 06/01/17 21:19 99.2 F 72 18 149/67 96 - Laboratory Result Diagrams: 06/02/17 01:00 06/02/17 01:00 Lab Statement: Any lab studies that have been ordered have been reviewed, and results considered in the medical decision making process. Re-Evaluation - Re-Evaluation First Eval Re-Evaluation Time: 01:52 Comment: I discussed admission plan with the pt. She agrees. Back Pain Course/Dx - Course Course Of Treatment: Pt is a 77 y/o female, with hx of sciatica, who presents with low back pain radiating down the left leg. In the ED course the pt was given prednisone, Flexeril, Percocet, and oxycodone. Pt was ambulated in the ED but she was only able to take two steps. I discussed pt care with Dr. Mirza, hospitalist, who has agreed to admit the pt. - Diagnoses Provider Diagnoses: Lumbar radiculopathy - Provider Notifications Discussed Care Of Patient With: Jose Mirza Time Discussed With Above Provider: 01:50 Instructed by Provider To: Other - I discussed pt care with Dr. Mirza, hospitalist, who has agreed to admit the pt. Discharge - Discharge Plan Condition: Stable Disposition: ADMITTED TO [facility] Referrals: Dede KUMAR,Terry [Primary Care Provider] - The documentation as recorded by the Christiano hartmann Angela accurately reflects the service I personally performed and the decisions made by , Liam Sebastian MD.
--- NOTE | 2017-06-02 01:56 | HP ---
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 Over the past 2 weeks it has gradually increased to the point now she cannot get out of bed or walk. She denies any component of weakness or change in bowel/bladder function. She denies any recent injury or change in activity. She presented to ED last PM and was improved enough to attempt discharge, but this AM was unable to get out of bed even with the help of both her son & daughter. As such they called EMS for transport and re-evaluation. Despite adequate attempts at pain control by ED she has not been able to get relief or ambulate reliable. Therefore, request for admission for intractable pain was made. PMedHx mechanical aortic & mitral valve replacements 2nd rheumatic disease HTN urinary retention glaucoma Ambulatory Orders Bisoprolol TAB* [Zebeta TAB*] 10 mg PO QAM 12/18/12 Estradiol TAB(NF) 0.5 mg PO QAM 12/18/12 Warfarin TAB(*) [Coumadin TAB(*)] 3.75 mg PO SEE INSTRUCTIONS 12/18/12 Losartan TAB* [Cozaar TAB*] 100 mg PO QPM 01/14/16 Prasterone (DHEA) CAP (NF) [Dhea Cap (NF)] 50 mg PO QAM 01/14/16 Warfarin TAB(*) [Coumadin TAB(*)] 7.5 mg PO SUTUWEFRSA 01/14/16 amLODIPine TAB* [Norvasc 5 mg TAB*] 5 mg PO QAM 01/14/16 Brimonidine P 0.1%(NF) [Alphagan P 0.1% (NF)] 1 drop RIGHT EYE BID 02/25/16 Latanoprost 0.005% OPTH (NF) [Xalatan 0.005% OPTH*] 1 drop RIGHT EYE BEDTIME Methylsulfonylmethane [MSM] 1 pow PO 1200 03/15/17 methylPREDNISolone [Medrol Dosepak 4 MG*] 4 mg PO .SEE KIRTI INSTRUCTION 6 Days # 1 packet 05/13/17 Gabapentin CAP(*) [Neurontin 300 CAP(*)] 300 mg PO BEDTIME #10 cap 05/31/17 traMADol TAB* [Ultram*] 50 mg PO Q8H PRN #15 tab MDD 3 05/31/17 Allergies codeine Allergy (Verified 06/02/17 01:05) Shock acetaminophen Adverse Reaction (Verified 06/02/17 01:05) Nausea lactose Adverse Reaction (Verified 06/02/17 02:51) GI levofloxacin [From Levaquin] Adverse Reaction (Verified 06/02/17 01:05) Cramps meperidine Adverse Reaction (Verified 06/02/17 01:05) Hyper PSurgHx OS glaucoma surgery tonsillectomy mechanical AVR mechanical MVR cholecystectomy appendectomy hysterectomy vaginal prolapse repair (failed) SocHx: no tobacco, alcohol, or recreational drugs; ; full code status FamHx: positive for CHF & PUD ROS: as above, otherwise reviewed and all were negative vitals: Vital Signs Temp 36.6 C 06/02/17 08:06 Pulse 61 06/02/17 08:06 Resp 14 06/02/17 10:16 BP 103/42 06/02/17 08:06 Pulse Ox 95 06/02/17 08:06 Intake & Output 06/01/17 06/01/17 06/02/17 11:59 23:59 11:59 Intake Total 120 Output Total 0 Balance 120 Weight 68.039 kg 68.266 kg Intake: Oral 120 Output: Urine 0 Constitutional: NAD, normally developed, well-nourished elderly white female appearing younger than her stated age HEENM: atraumatic; sclera/conjunctiva: anicteric/clear; hearing: clinically intact; oropharynx: clear, mucosa moist Neck: soft tissue: non-tender; thyroid: normal Pulmonary: clear to auscultation bilaterally, good aeration, no accessory muscle use CV: RR/RR, mechanical click S1S2 radiating to B carotids & abdomen, no carotid bruit, no jugular venous distention, 2+ B DP/PT, no edema Abdominal: soft, non-distended, non-tender, no rebound/guarding/rigidity, normoactive bowel sounds, no hepatosplenomegaly or masses, no costovertebral angle tenderness Musculoskeletal: general: grossly intact, mildly tender shins B; gait: non- ambulatory 2nd pain Integumental: normal appearance and texture of exposed skin Psychiatric orientation: AA&O to PPS affect: calm mood: cooperative/pleasant eye contact: good content: reliable responses: timely insight: fair Testing: Lab Results 06/02/17 06/02/17 Range/Units 01:00 01:00 WBC 8.1 (3.5-10.8) 10^3/ul RBC 4.86 (4.0-5.4) 10^6/ul Hgb 14.2 (12.0-16.0) g/dl Hct 42 (35-47) % MCV 87 (80-97) fL MCH 29 (27-31) pg MCHC 34 (31-36) g/dl RDW 14 (10.5-15) % Plt Count 172 (150-450) 10^3/ul MPV 10 (7.4-10.4) um3 Neut % (Auto) 79.0 (38-83) % Lymph % (Auto) 10.0 L (25-47) % [place] % (Auto) 9.0 H (0-7) % Eos % (Auto) 0.9 (0-6) % Baso % (Auto) 1.1 (0-2) % Absolute Neuts (auto) 6.4 (1.5-7.7) 10^3/ul Absolute Lymphs (auto) 0.8 L (1.0-4.8) 10^3/ul Absolute Monos (auto) 0.7 (0-0.8) 10^3/ul Absolute Eos (auto) 0.1 (0-0.6) 10^3/ul Absolute Basos (auto) 0.1 (0-0.2) 10^3/ul Absolute Nucleated RBC 0 10^3/ul Nucleated RBC % 0 Sodium 137 (133-145) mmol/L Potassium 3.6 (3.5-5.0) mmol/L Chloride 105 (101-111) mmol/L Carbon Dioxide 26 (22-32) mmol/L Anion Gap 6 (2-11) mmol/L BUN 11 (6-24) mg/dL Creatinine 0.56 (0.51-0.95) mg/dL Est GFR ( Amer) 135.0 (>60) Est GFR (Non-Af Amer) 105.0 (>60) BUN/Creatinine Ratio 19.6 (8-20) Glucose 112 H (70-100) mg/dL Calcium 9.2 (8.6-10.3) mg/dL Total Bilirubin 0.70 (0.2-1.0) mg/dL AST 32 (13-39) U/L ALT 17 (7-52) U/L Alkaline Phosphatase 100 (34-104) U/L Total Protein 7.3 (6.4-8.9) g/dL Albumin 3.9 (3.2-5.2) g/dL Globulin 3.4 (2-4) g/dL Albumin/Globulin Ratio 1.1 (1-3) CT L-spine (05/31/2017): IMPRESSION: 1. DEGENERATIVE DISC DISEASE AND OSTEOARTHRITIS. 2. THERE IS MODERATE TO SEVERE NARROWING OF CENTRAL CANAL AT L4-L5 WITH MILD NARROWING AT L3-L4 AND L5-S1. 3. THERE IS MULTILEVEL NEURAL FORAMINAL NARROWING DESCRIBED ABOVE. 4. ATHEROSCLEROSIS. 5. AGAIN NOTED IS AN EXOPHYTIC HIGH ATTENUATION LESION OF THE LEFT KIDNEY DESCRIBED ON THE PREVIOUS CT OF THE ABDOMEN AND PELVIS. Impression: 77F presenting with intractable R sciatica pain radiating in the L1 & L4/5 distributions DIAGNOSIS & PLAN Primary intractable R sciatica pain radiating in the L1 & L4/5 distributions : pain control : continue gabapentin & tramadol : PT evaluation : supportive care Secondary mechanical aortic & mitral valve replacements 2nd rheumatic disease : continue warfarin HTN : continue losartan, bisoprolol, & amlodipine urinary retention glaucoma : continue brimonidine & latanaprost Admission Rational: observation for intractable R sciatica pain DVTp: continue warfarin Code Status: full HCP: daughterIndira
[2017-06-02] MEDS ORDERED: traMADol TAB* 50 MG PO PRN ×2 (02:48→02:52)
[2017-06-02] MEDS ORDERED: Ondansetron INJ* 2 MG/ML VIAL IV PRN (02:48)
[2017-06-02] MEDS ORDERED: CMCS: Melatonin (NF) 3 MG TAB PO PRN (02:48)
[2017-06-02] MEDS ORDERED: HYDROmorphone INJ* 1 MG/ML CARPUJECT SYRINGE IV PRN (02:51)
[2017-06-02] MEDS ORDERED: Baclofen TAB* 10 MG PO PRN (02:52)
[2017-06-02] MEDS: Omeprazole CAP* 20 MG PO SCH (05:27)
[2017-06-02] MEDS: Bisoprolol TAB* 5 MG PO SCH (08:40)
[2017-06-02] MEDS: amLODIPine TAB* 5 MG PO SCH (08:40)
[2017-06-02] MEDS: Docusate CAP* 100 MG PO SCH ×2 (08:40→19:44)
[2017-06-02] MEDS: ESTRADIOL 0.5 MG PO SCH (08:42)
[2017-06-02] MEDS: DHEA PO SCH (08:42)
[2017-06-02] MEDS: PTO:Brimonidine P 0.1%(NF) 1 DROP BTL RIGHT EYE SCH ×2 (08:42→21:44)
[2017-06-02] MEDS: oxyCODONE TAB* 5 MG TAB PO PRN ×2 (10:16→22:21)
[2017-06-02] MEDS ORDERED: Dexamethasone IV* 4 MG/ML 1 ML (4 MG) IV SLOW PU ONE (16:54)
--- NOTE | 2017-06-02 17:00 | PN ---
Subjective Date of Service: 06/02/17 Interval History: PAtient seen and examined. States while laying inbed, pain is tolerable but increased when she tried to ambulate. Describes as radiatating down the left buttock to the lateral left thigh with numbness of the foot and toes. States at home it was excruciating, has had minimal improvement. Prefers not to take narcotics. Denies any further complaints. Objective Active Medications: Amlodipine Besylate (Norvasc Tab*) 5 mg PO QAM [facility] Last Admin: 06/02/17 08:40 Dose: 5 mg Bisoprolol Fumarate (Zebeta Tab*) 10 mg PO QAM [facility] Last Admin: 06/02/17 08:40 Dose: 10 mg Brimonidine Tartrate (Alphagan P 0.1% (Nf)) 1 drop RIGHT EYE BID [facility] Last Admin: 06/02/17 08:42 Dose: Not Given Dehydroepiandrosterone (Dhea Cap (Nf)) [facility] Reason: Protocol Last Admin: 06/02/17 08:42 Dose: Not Given Dexamethasone Sodium Phosphate (Decadron Iv*) 4 mg IV SLOW PU ONCE ONE Stop: 06/02/17 16:55 Docusate Sodium (Colace Cap*) 200 mg PO BID [facility] Last Admin: 06/02/17 08:40 Dose: 200 mg Estradiol (Estradiol (Nf)) [facility] Reason: Protocol Last Admin: 06/02/17 08:42 Dose: Not Given Latanoprost (Xalatan 0.005%*) 1 drop RIGHT EYE BEDTIME [facility] Losartan Potassium (Cozaar Tab*) 100 mg PO QPM [facility] Melatonin (Melatonin (Nf)) 3 mg PO BEDTIME PRN; Protocol PRN Reason: Sleep Omeprazole (Prilosec Cap*) 20 mg PO DAILY@0600 [facility] Last Admin: 06/02/17 05:27 Dose: 20 mg Ondansetron HCl (Zofran Inj*) 4 mg IV Q6H PRN PRN Reason: NAUSEA Oxycodone HCl (Roxycodone Tab*) 5 mg PO Q4H PRN PRN Reason: PAIN Last Admin: 06/02/17 10:16 Dose: 5 mg Tramadol HCl (Ultram*) 50 mg PO Q8H PRN PRN Reason: PAIN Vital Signs - 8 hr 06/02/17 06/02/17 06/02/17 10:16 11:33 15:07 Temperature 97.6 F Pulse Rate 61 Respiratory 14 13 14 Rate Blood Pressure 107/47 (mmHg) O2 Sat by Pulse Oximetry 06/02/17 15:25 Temperature 98.1 F Pulse Rate 71 Respiratory 16 Rate Blood Pressure 123/53 (mmHg) O2 Sat by Pulse 99 Oximetry Oxygen Devices in Use Now: None Appearance: Alert, NAD Eyes: No Scleral Icterus, PERRLA Ears/Nose/Mouth/Throat: NL Teeth, Lips, Gums, Mucous Membranes Moist Neck: Trachea Midline Respiratory: Symmetrical Chest Expansion and Respiratory Effort, Clear to Auscultation Cardiovascular: NL Sounds; No Murmurs; No JVD, RRR Abdominal: NL Sounds; No Tenderness; No Distention Extremities: No Edema, No Clubbing, Cyanosis Neurological: Alert and Oriented x 3, NL Sensation Nutrition: Taking PO's Result Diagrams: 06/02/17 01:00 06/02/17 01:00 Assess/Plan/Problems-Billing Assessment: - Patient Problems (1) Lumbar radiculopathy Code(s): M54.16 - RADICULOPATHY, LUMBAR REGION SNOMED Code(s): 404317378 Comment: - Trial zanaflex with lactase (for lactose allergy) for spasms - Will trial IV decadron now, continue roxicodone - Still with difficulty ambulating, will obtain lumbar spine MRI (2) Rheumatic disorders of both mitral and aortic valves Code(s): I08.0 - RHEUMATIC DISORDERS OF BOTH MITRAL AND AORTIC VALVES SNOMED Code(s): 11553481 Comment: - Mitral and aortic mechanical valves - Continue coumadin - EKG negative for any acute changes (3) Glaucoma Code(s): H40.9 - UNSPECIFIED GLAUCOMA SNOMED Code(s): 87628133 Comment: - Continue eye drops (4) Hypertension Code(s): I10 - ESSENTIAL (PRIMARY) HYPERTENSION SNOMED Code(s): 15335091 Comment: - Continue losartan and bisoprolol, BP stable Status and Disposition: Remain inpatient Counseling and/or Coordination of Care Minutes: coordinated with staff
[2017-06-02] MEDS ORDERED: Losartan TAB* 25 MG PO SCH (18:00)
[2017-06-02] MEDS ORDERED: Latanoprost 0.005%* 2.5 ml BTL RIGHT EYE SCH (21:00)
[2017-06-02] MEDS ORDERED: Gabapentin CAP(*) 300 MG PO SCH (21:00)
[2017-06-02] MEDS ORDERED: Warfarin TAB(*) 7.5 MG PO SCH (23:00)
[2017-06-02] MEDS ORDERED: Lidocaine 2% VISCOUS* 15 ML UDC PO ONE ×2 (23:46)
[2017-06-02] MEDS ORDERED: Al Hydrox/Mg Hydrox/Simet LIQ* 30 ML UDC PO ONE ×2 (23:46)
[2017-06-03] MEDS: Omeprazole CAP* 20 MG PO SCH (05:02)
[2017-06-03] MEDS ORDERED: Polyethylene Glycol 3350* 17 GM PACKET PO PRN (07:46)
--- NOTE | 2017-06-03 07:50 | RAD ---
HISTORY: Low back pain, left leg pain, unable to ambulate COMPARISONS: None TECHNIQUE: The following sequences were obtained of the lumbar spine: Sagittal and axial T1- and T2-weighted images, coronal T2-weighted images, and sagittal STIR images. FINDINGS: SPINAL CORD, CONUS, AND CAUDA EQUINA: The visualized spinal cord, conus, and cauda equina are normal in caliber, position, and signal intensity. ALIGNMENT: There is trace anterolisthesis of L4 on L5. VERTEBRAL BODIES: There is a hemangioma of L1. There are mild Modic type I reactive endplate changes at L3-L4. JOINTS: There is facet osteoarthritis along the lower lumbar spine. MUSCULATURE: There is mild fatty infiltration. INTERVERTEBRAL DISCS: There is diffuse loss of intervertebral disc height and T2 signal throughout the spine. AXIAL IMAGES: T12-L1: There is no disc herniation, spinal stenosis, or neuroforaminal narrowing. L1-L2: There is bilateral facet hypertrophy. There is no significant neural foraminal narrowing or central canal stenosis. L2-L3: There is broad-based disc bulge. There is an annular fissure extending along the left neural foramen. There is bilateral facet hypertrophy. There is mild bilateral neural foraminal narrowing. There is mild narrowing of central canal. L3-L4: There is broad-based disc bulge. There is bilateral facet hypertrophy. There is mild bilateral neural foraminal narrowing. There is mild narrowing of the central canal. L4-L5: There is a broad-based disc bulge/rolled disc. There is bilateral facet hypertrophy. There is ligamentous of atrophy. There is moderate bilateral neural foraminal narrowing. There is moderate narrowing of the central canal. L5-S1: There is bilateral facet hypertrophy. There is no significant neural foraminal narrowing or central canal stenosis. SOFT TISSUES: Renal cysts are noted. OTHER: None. IMPRESSION: 1. DEGENERATIVE DISC DISEASE AND OSTEOARTHRITIS. 2. THERE IS MODERATE NARROWING OF THE CENTRAL CANAL AT L4-L5 WITH MILD NARROWING AT L3-L4. 3. THERE IS MULTILEVEL NEURAL FORAMINAL NARROWING DESCRIBED ABOVE.
[2017-06-03] MEDS: Docusate CAP* 100 MG PO SCH (08:22)
[2017-06-03] MEDS: Bisoprolol TAB* 5 MG PO SCH (08:22)
[2017-06-03] MEDS: amLODIPine TAB* 5 MG PO SCH (08:22)
[2017-06-03] MEDS: PTO:Brimonidine P 0.1%(NF) 1 DROP BTL RIGHT EYE SCH (08:25)
[2017-06-03] MEDS ORDERED: Dexamethasone IV* 4 MG/ML 1 ML (4 MG) IV SLOW PU ONE (09:06)
[2017-06-03] MEDS: ESTRADIOL 0.5 MG PO SCH (10:37)
[2017-06-03] MEDS: DHEA PO SCH (10:38)
[2017-06-03] MEDS ORDERED: predniSONE TAB* 10 MG PO ONE (10:57)
--- NOTE | 2017-06-03 11:15 | DS ---
CC: Dr. Aguayo * DATE OF ADMISSION: 06/02/2017. DATE OF DISCHARGE: 06/03/2017. PRIMARY CARE PHYSICIAN: Dr. Aguayo. ATTENDING PHYSICIAN FOR THIS ADMISSION: Dr. Mirza. MY ATTENDING PHYSICIAN TODAY: Dr. Jasmine Saleem.* (DICTATED BY EL GONZALEZ NP) HOSPITAL COURSE: This is a very pleasant, 77-year-old female patient who has had some issues with low back pain and radicular type pain running down the left leg and some sciatic pain. The patient woke up in the morning, said the pain was unbearable, came to the emergency department because she was unable to ambulate. She had a CAT scan showing some degenerative changes in the lumbar spine. The patient received IV steroids, pain medication, and Gabapentin; however, she was still having much difficulty ambulating. We did an MRI of the lumbar spine which shows lumbar spinal stenosis. In particular, there is moderate narrowing of the central canal at L4-5 with some additional mild narrowing at L3 to L4. There is multilevel neural foraminal narrowing and degenerative disk disease with osteoarthritis and some loss of the disk height. The patient has multiple allergies. We tried her on some antispasmodic medication; however, due to her lactose intolerance, we were not able to prescribe this for her. She responded well to IV steroids and Oxycodone. The patient wishes to be discharged today. She is going to get a physical therapy evaluation to ensure she is safe to discharge. She will go home and have an outpatient follow-up with Dr. Scherer. She was referred to Dr. Scherer to review her MRI findings and see if additional treatment would be helpful for her. The patient understands her discharge instructions. MEDICATIONS AT THE TIME OF DISCHARGE: 1. Norvasc 5 mg daily. 2. Bisoprolol 10 mg daily. 3. Alphagan one drop to the right eye 2 times a day. 4. DHEA cap 50 mg daily. 5. Colace 200 mg two times a day. 6. Estradiol 0.5 mg p.o. daily. 7. Xalatan eye drops one drop to the right eye at bedtime. 8. Cozaar 100 mg in the evening. 9. Oxycodone 5 mg q.6 hours as needed for pain. 10. Coumadin 7.5 mg Wednesday, Wednesday, Wednesday, , Wednesday and 3.75 mg on Wednesday and Wednesday. 11. MiraLax 17 gm daily. 12. Gabapentin 300 mg at bedtime. On the day of discharge, vital signs are blood pressure 125/50, heart rate 64, respiratory rate 16, oxygen saturation 97 percent on room air, temperature 97.8. PHYSICAL EXAMINATION: General: The patient is awake and alert, in no acute distress. Vital Signs: As above. HEENT: The patient is atraumatic, normocephalic. PERRLA with nonicteric sclerae. Neck: Supple, nontender, no JVD noted, no thyromegaly appreciated, no carotid bruit auscultated. Cardiovascular: S1, S2 are present. No murmurs, gallops or rubs noted. She does have an audible click secondary to a mechanical valve. Lungs: Clear bilaterally to auscultation with no wheezing, rhonchi or rales. Abdomen: Soft , nontender, nondistended. Positive bowel sounds all four quadrants. Hypoactive in nature. : Deferred. Musculoskeletal: There is no clubbing and no cyanosis. No edema. She has some palpable paraspinal tenderness over the lumbar spine and down the left buttock. She has gross motor intact on that side; however, sensation is slightly diminished and she does have some paresthesia of the left foot. Neurologic: She is alert and oriented times three with no focal deficits. Psychiatric: She is cooperative and appropriate. LABORATORY DATA: WBC 8.1, RBC 4.86, hemoglobin 14.2, hematocrit 42, platelets 172; sodium 137, potassium 3.6, chloride 105, CO2 26, BUN 11, creatinine 0.56, GFR 105, glucose 112, calcium 9.2, AST 32, ALT 17, alk phos 100. The patient was discharged in stable condition. All questions were answered. She was instructed to follow-up with Dr. Scherer and her primary care physician, Dr. Aguayo. EL MARGRETFIELD GONZALEZ, MICROFABRICATION ENGINEER MANAGER [id number]/[facility] #: [id number] [facility]
[2017-06-03 13:50] VITALS: BP 117/47
[2017-06-03] MEDS ORDERED: Warfarin TAB(*) 7.5 MG PO SCH ×2 (17:00→21:58)
[2017-06-04] MEDS ORDERED: Warfarin TAB(*) 7.5 MG PO SCH (17:00)
== END 2017-06-03 16:00 | disposition home or self-care (01) ==
LOC: ED 21:13 → MEDTELE 06-02 01:56
PROVIDERS: ADMIT Hospitalist; ATTEND Hospitalist
DX: M48.061 Spinal stenosis, lumbar region without neurogenic claudication (principal); M54.16 Radiculopathy, lumbar region; I08.0 Rheumatic disorders of both mitral and aortic valves; M51.36 Other intervertebral disc degeneration, lumbar region; H40.9 Unspecified glaucoma; I10 Essential (primary) hypertension; M54.32 Sciatica, left side; G57.02 Lesion of sciatic nerve, left lower limb; M54.5 Low back pain; M79.605 Pain in left leg
CPT/HCPCS: 36415; 72148; 80053; 85025; 93005; 96374; 99285; A9270-GY; G0378; G8978-GP-CI; G8979-GP-CH; G8990-GO-CJ; G8991-GO-CI; G8992-GO-CI; J1100; J1170; J2270; J2405; J7512

== ENCOUNTER 2017-09-16 18:39 | Emergency (ER) | payer MEDICARE, OTHER ==
[2017-09-16 19:01] VITALS: BP 149/73
[2017-09-16] MEDS ORDERED: Ondansetron ODT TAB* 4 MG PO ONE (19:11)
--- NOTE | 2017-09-16 19:17 | UC ---
HPI Febrile Illness - HPI Summary HPI Summary: 77 yo female with a 2-3 day hx of fever and chills she has had headache left sided sinus pressure and pain dry cough diffuse abd pain nausea, no vomiting dysuria right sided back pain she had artificial valves - History of Current Complaint Chief Complaint: UCGeneralIllness Time Seen by Provider: 09/16/17 19:02 Hx Obtained From: Patient Onset/Duration: Started Days Ago Timing: Constant Initial Severity: Mild Current Severity: Moderate Pain Intensity: 5 Pain Scale Used: 0-10 Numeric Alleviating Factors: Nothing Associated Signs and Symptoms: Chills, Cough, Dysuria, Headache, Nausea, Weakness - Additional Pertinent History Primary Care Physician: [id number] - Allergy/Home Medications Allergies/Adverse Reactions: Allergies Allergy/AdvReac Type Severity Reaction Status Date / Time codeine Allergy Shock Verified 09/16/17 19:01 acetaminophen AdvReac Nausea Verified 09/16/17 19:01 lactose AdvReac GI Verified 09/16/17 19:01 levofloxacin [From Levaquin] AdvReac Cramps Verified 09/16/17 19:01 meperidine AdvReac Hyper Verified 09/16/17 19:01 PMH/Surg Hx/FS Hx/Imm Hx Endocrine History: Dyslipidemia Cardiovascular History: Hypertension Other Cardiovascular History: valve replacement - Surgical History Surgical History: Yes Surgery Procedure, Year, and Place: Choley, appy, tonsils, hyster, heart valve replacement x 2, cataracts, glaucoma, vaginal prolapse - Family History Known Family History: Positive: Cardiac Disease, Hypertension, Other - CHF - Social History Alcohol Use: None Substance Use Type: None Smoking Status (MU): Never Smoked Tobacco - Immunization History Most Recent Influenza Vaccination: 2016 Most Recent Tetanus Shot: 2013 Most Recent Pneumonia Vaccination: within last 10 years Review of Systems Constitutional: Fever, Chills, Fatigue Skin: Negative Eyes: Negative ENT: Nasal Discharge, Sinus Congestion, Sinus Pain/Tenderness Respiratory: Cough Cardiovascular: Negative Gastrointestinal: Abdominal Pain, Nausea Genitourinary: Dysuria Motor: Negative Neurovascular: Negative Musculoskeletal: Negative Neurological: Headache Psychological: Negative All Other Systems Reviewed And Are Negative: Yes Physical Exam Triage Information Reviewed: Yes Appearance: Well-Appearing, No Pain Distress, Well-Nourished Vital Signs: Initial Vital Signs Temp 96.8 F 09/16/17 18:56 Pulse 73 09/16/17 18:56 Resp 18 09/16/17 18:56 BP 149/73 09/16/17 18:56 Pulse Ox 97 09/16/17 18:56 Vital Signs Reviewed: Yes Eyes: Positive: Conjunctiva Clear ENT: Positive: Hearing grossly normal, Nasal congestion, TMs normal, Sinus tenderness, Uvula midline. Negative: Pharyngeal erythema, Nasal drainage, Tonsillar swelling, Tonsillar exudate, Trismus, Muffled voice, Hoarse voice, Dental tenderness Dental Exam: Normal Neck: Positive: Supple, Nontender, No Lymphadenopathy Respiratory: Positive: Lungs clear, Normal breath sounds, No respiratory distress, No accessory muscle use Cardiovascular: Positive: RRR, No Murmur Abdomen Description: Positive: No Organomegaly, Soft, CVA Tenderness (R) - slight. Negative: Nontender - diffusely tender to deep palpation, Hepatomegaly , Peritoneal Signs, Pulsatile Mass, Splenomegaly Bowel Sounds: Positive: Present, Hyperactive Musculoskeletal: Positive: ROM Intact, No Edema Neurological: Positive: Alert Psychological Exam: Normal Skin Exam: Normal Course/Dx - Diagnoses Clinic Provider Diagnoses: acute sinusitis. dysuria Discharge - Sign-Out/Discharge Documenting (check all that apply): Discharge/Admit/Transfer - Discharge Plan Condition: Stable Disposition: HOME Prescriptions: Amoxicillin/Clavulanate TAB* [Augmentin TAB 875*] 875 mg PO BID #20 tab Ondansetron TAB* [Zofran Tab*] 4 mg PO Q6H PRN #10 tab PRN Reason: Nausea Patient Education Materials: Sinusitis (ED) Referrals: Terry Aguayo MD [Primary Care Provider] - As Soon As Possible Additional Instructions: recheck in 48 hours if not markedly better close follow up of INR while on antibiotic TO ER FOR NEW OR WORSENING SYMPTOMS - Billing Disposition and Condition Condition: STABLE Disposition: Home
== END 2017-09-16 19:50 | disposition home or self-care (01) ==
LOC: UCEAST 18:39
DX: J01.90 Acute sinusitis, unspecified (principal); R30.0 Dysuria; R10.84 Generalized abdominal pain; M54.9 Dorsalgia, unspecified; R11.0 Nausea; Z88.5 Allergy status to narcotic agent; Z88.8 Allergy status to other drugs, medicaments and biological substances; Z88.1 Allergy status to other antibiotic agents; Z91.011 Allergy to milk products; I10 Essential (primary) hypertension
CPT/HCPCS: 81003; 87086; 99212; A9270-GY; G0463

== ENCOUNTER 2018-04-01 14:30 | Emergency (ER) | payer MEDICARE ==
--- OUTSIDE RECORDS SUMMARY | 2018-04-01 14:36 | XMS REPORT | Continuity of Care Document ---
:1940 External Reference #:[id number] Author Name Tin Nassar M.D. Address [address] [place] [address] Care Team Providers Name Role Phone Terry Aguayo M.D. Primary Care Physician Unavailable Payers Type Date Identification Numbers Payment Provider Subscriber Policy Number: [id number] [employer] LARRY Dickson PayID: [id number] [address] [address] [place] [address] Advance Directives Description No Information Available Problems Date Description Provider Status Onset: Chronic sinusitis Active Onset: Irritable bowel syndrome Active Onset: Essential hypertension Active Onset: Arthritis Active Onset: Heart valve replacement Active Onset: Rheumatic heart disease Active Onset: 10/04/2014 Primary open angle glaucoma Tin Nassar M.D. Active Onset: 10/04/2014 Nuclear senile cataract Tin Nassar M.D. Active Onset: 10/04/2014 Severe / Advanced / End Stage Glaucoma Tin Nassar M.D. Active Onset: 02/04/2015 Combined form of senile cataract Tin Nassar M.D. Active Onset: 10/07/2017 Other secondary cataract, bilateral Tin Nassar M.D. Active Onset: 10/11/2017 Other secondary cataract, left eye Tin Nassar M.D. Active Onset: 10/11/2017 Presence of intraocular lens Tin Nassar M.D. Active Family History Date Family Member(s) Problem(s) Comments Father No Current Problems Mother No Current Problems Social History Type Date Description Comments Sex Unknown Marital Status Legal Status: Occupation Retired - [employer] ETOH Use Rarely consumes alcohol Tobacco Use Start: Unknown Patient has never smoked Recreational Drug Use Denies Drug Use Smoking Status Reviewed: 03/08/18 Patient has never smoked Allergies, Adverse Reactions, Alerts Date Description Reaction Status Severity Comments 09/10/2014 Codeine Active 09/10/2014 Boric Acid Active 09/10/2014 Azopt Active 09/10/2014 Demerol Active 09/10/2014 Beta Adrenergic Blockers increased depressive Active symptoms Medications Medication Date Status Form Strength Qnty SIG Indications Ordering Provider Tears Again 03/17 Active Solution as needed Tin Kellogg /2016 (rare) Maday M.D. Estradiol Active Tablets 0.5mg Unknown /0000 Bisoprolol Active Tablets 5mg Unknown Fumarate /0000 Warfarin Sodium Active Tablets 7.5mg Unknown /0000 Latanoprost Active Solution 0.005% 1 drop Tin Kellogg / daily Arleo, right eye M.D. Losartan Active Tablets 50mg Unknown Potassium /0000 Alphagan P Active Solution 0.1% 15ml 1 drop Tin Kellogg /0000 both eyes Arleo, twice a M.D. day Multiple Vitamins Active Tablets Unknown /0000 MSM Active Capsules 750mg Unknown /0000 Amlodipine Active Tablets 5mg Unknown Besylate /0000 Amoxicillin/Clavu Active Tablets 875-125mg Galyanova, lanate Potassium /0000 Lili Serrano Ciprofloxacin HCL 03/09 Hx Solution 0.3% 10ml instill Tin Kellogg /2016 one drop Maday, - in the M.D. 04/07 right eye three times a day, start the day before surgery Ketorolac 03/09 Hx Solution 0.4% 5ml instill Tin Kellogg Tromethamine one drop Armeliza, - in the M.D. 04/07 right eye three times a day starting the day before surgery Prednisolone 03/09 Hx Suspension 1% 15ml 1 drops Tin Kellogg Acetate right eye Arleo, - three M.D. 04/07 times a day. taper as directed Erythromycin Hx Ointment 5mg/GM Apply 1CM Tin J. /0000 Ribbon To Arleo, - The Right M.D. 10/03 Eye Times A Day as Directed Polymyxin B Hx Solution 12526-9.1 Instill 1 Tin J. Sulfate/Trimethop /0000 Unit/ML-% Drop Into Arleo, rim Sulfate - The Right M.D. 10/03 Eye 6 HRS as Directed Premarin Hx Cream 0.625mg/G Unknown /0000 M - 11/02 Hydrochlorothiazi Hx Capsules 12.5mg Unknown de /0000 - 11/02 Alprazolam Hx Tablets 0.25mg Take 1 Unknown /0000 Tablet AT - Bedtime 11/02 as Needed For Anxiety, Max: 1/Day Turmeric Hx Capsules 450mg Unknown / - 04/07 Augmentin Hx Tablets 875-125mg one Unknown /0000 tablet by - mouth 04/07 twice a /2017 day for 7 days Immunizations Description No Information Available Vital Signs Date Vital Result Comment 10/25/2017 3:43pm BP Systolic 140 mmHg BP Diastolic 75 mmHg Heart Rate 62 /min 10/11/2017 3:39pm BP Systolic 137 mmHg BP Diastolic 80 mmHg Heart Rate 68 /min Respiratory Rate 16 /min Results Description No Information Available Procedures Date Code Description Status 10/25/2017 66614 Remove Secondary Cataract, Laser (Yag) Completed 10/11/2017 03418 Remove Secondary Cataract, Laser (Yag) Completed 10/07/2017 21260 Est Patient Intermediate Exam Completed 07/08/2017 59739 Visual Field Exam Extended Completed 07/08/2017 99453 Est Patient Intermediate Exam Completed 03/24/2017 78845 Extracapsular Cataract Extraction W/Intraocular Lens Completed 03/17/2017 33951 Extracapsular Cataract Extraction W/Intraocular Lens Completed 03/09/2017 60201 Ophthalmic Biometry Completed 03/04/2017 79354 Visual Field Exam Extended Completed 03/04/2017 97097 Est Patient Comprehensive Exam Completed 08/17/2016 29034 Est Patient Comprehensive Exam Completed 08/17/2016 65779 Scanning Computerized Ophthalmic Diagnostic Imag Posterior Completed Seg On 03/10/2016 97407 Visual Field Exam Extended Completed 03/10/2016 48948 Est Patient Intermediate Exam Completed 11/04/2015 75490 Visual Field Exam Extended Completed 11/04/2015 93022 Est Patient Intermediate Exam Completed 07/02/2015 99645 Fundus Photography With Interpretation And Report Completed 07/02/2015 73186 Est Patient Comprehensive Exam Completed 02/04/2015 28760 Est Patient Intermediate Exam Completed 10/04/2014 88848 Est Patient Intermediate Exam Completed 10/04/2014 59161 Visual Field Exam Extended Completed 09/10/2014 51274 Est Patient Intermediate Exam Completed 05/29/2014 71916 Scanning Computerized Ophthalmic Diagnostic Imag Posterior Completed Seg On 05/29/2014 83102 Est Patient Comprehensive Exam Completed 05/21/2014 43476 Visual Field Exam Extended Completed 12/28/2013 44868 Gonioscopy Completed 12/28/2013 49875 Determination Of Refractive State Completed 11/13/2013 62539 Trabeculoplasty By Laser Surgery Completed 09/28/2013 35837 Visual Field Exam Extended Completed 09/28/2013 85348 Est Patient Intermediate Exam Completed 03/21/2013 22448 Est Patient Comprehensive Exam Completed 03/21/2013 94396 Fundus Photography With Interpretation And Report Completed 11/04/2012 22563 Recheck Completed 09/16/2012 94353 Visual Field Exam Extended Completed 09/16/2012 65248 Est Patient Intermediate Exam Completed 05/16/2012 86308 Scanning Computerized Ophthalmic Diagnostic Imag Posterior Completed Seg On 05/16/2012 88925 Determination Of Refractive State Completed 05/16/2012 37371 Est Patient Comprehensive Exam Completed 01/15/2012 85351 Visual Field Exam Extended Completed 01/15/2012 36865 Est Patient Intermediate Exam Completed 06/23/2011 55265 Trabeculoplasty By Laser Surgery Completed 03/27/2011 33658 Est Patient Intermediate Exam Completed 12/12/2010 14138 Visual Field Exam Extended Completed 12/12/2010 60921 Est Patient Intermediate Exam Completed 08/08/2010 60167 Est Patient Intermediate Exam Completed 03/07/2010 87472 Scanning Laser W/Interp And Report Completed 03/07/2010 40080 Scanning Laser W/Interp And Report Completed 03/07/2010 32666 Visual Field Exam Extended Completed 03/07/2010 96804 Est Patient Intermediate Exam Completed 09/17/2009 15720 Trabeculoplasty By Laser Surgery Completed 08/23/2009 02064 Recheck Completed 07/26/2009 38998 Est Patient Comprehensive Exam Completed 07/26/2009 70298 Determination Of Refractive State Completed 07/26/2009 56961 Visual Field Exam Extended Completed 07/26/2009 31694 Fundus Photography With Interpretation And Report Completed 03/22/2009 04016 Est Patient Intermediate Exam Completed 11/20/2008 11931 Scanning Laser W/Interp And Report Completed 11/20/2008 00357 Est Patient Intermediate Exam Completed 06/29/2008 60734 Trabeculoplasty By Laser Surgery Completed 06/22/2008 90116 Visual Field Exam Extended Completed 06/22/2008 38073 Est Patient Intermediate Exam Completed 03/21/2008 81550 Visual Field Exam Extended Completed 12/28/2007 90752 Drain Anterior Chamber Eye, Therapeutic Release Aqueous Completed 12/07/2007 02996 Fistulization Sclera For Glaucoma, Trabeculectomy AB Completed Externo 11/28/2007 72396 Scanning Laser W/Interp And Report Completed 10/25/2007 96615 Est Patient Intermediate Exam Completed 10/05/2007 51271 Visual Field Exam Extended Completed 09/09/2007 04491 Est Patient Intermediate Exam Completed 06/03/2007 38586 Visual Field Exam Extended Completed 04/08/2007 44307 Fundus Photography With Interpretation And Report Completed 12/29/2006 37720 Visual Field Exam Extended Completed 11/30/2006 17737 Est Patient Intermediate Exam Completed 08/23/2006 55913 Visual Field Exam Extended Completed 07/20/2006 68308 Scanning Laser W/Interp And Report Completed 07/20/2006 67280 Est Patient Intermediate Exam Completed 10/28/2005 79630 Visual Field Exam Extended Completed 07/31/2005 70574 Est Patient Intermediate Exam Completed 04/30/2005 95178 Visual Field Exam Extended Completed 02/18/2005 01204 Scanning Laser W/Interp And Report Completed 02/18/2005 00183 Scanning Laser W/Interp And Report Completed 02/18/2005 14789 Visual Field Exam Extended Completed 02/18/2005 13814 Pachymetry Completed 02/16/2005 81118 Fundus Photography With Interpretation And Report Completed Encounters Type Date Location Provider Dx Diagnosis Office Visit 03/09/2017 Tin Nassar, Tin Nassar, H25.811 Combined forms of 12:15p , rosanne Sanchez. age-related cataract, right eye H40.1112 Primary open-angle glaucoma, right eye, moderate stage H25.812 Combined forms of age-related cataract, left eye H40.1123 Primary open-angle glaucoma, left eye, severe stage Office Visit 09/18/2011 12:30p Tin Juan 365.11 Primary Open rosanne KUMAR M.D. Angle Glaucoma 365.73 Severe / Advanced / End Stage Glaucoma Office Visit 08/03/2011 12:45p Tin Juan.11 Primary Open rosanne KUMAR M.D. Angle Glaucoma 365.73 Severe / Advanced / End Stage Glaucoma Office Visit 10/29/2009 9:00a Tin Barbosa.11 Primary Open Angle MD Maday, rosanne Nassar M.D. Glaucoma Office Visit 08/13/2008 9:15a Tin Barbosa.11 Primary Open Angle MD Maday, rosanne Nassar M.D. Glaucoma Office Visit 05/15/2008 11:30a Tin Barbosa.11 Primary Open Angle MD Maday, rosanne Nassar M.D. Glaucoma Office Visit 05/08/2008 10:30a Tin Kellogg 370.20 Wilver Nassar MD, rosanne Nassar M.D. Keratitis Unspec Office Visit 04/24/2008 10:15a Tin Wallace 370.20 Wilver Nassar MD, rosanne Isidro O.D. Keratitis Unspec Office Visit 04/10/2008 9:15a Tin Wallace 370.20 Wilver Nassar MD, rosanne Isidro O.D. Keratitis Unspec Office Visit 03/21/2008 10:30a Tin Barbosa.11 Primary Open Angle MD Maday, rosanne Nassar M.D. Glaucoma Office Visit 11/28/2007 10:30a Tin Barbosa.11 Primary Open Angle MD Maday, rosanne Nassar M.D. Glaucoma Office Visit 07/29/2007 12:30p Tin Barbosa.11 Primary Open Angle MD Maday, rosanne Nassar M.D. Glaucoma Office Visit 06/28/2007 1:45p Tin Barbosa.11 Primary Open Angle MD Maday, rosanne Nassar M.D. Glaucoma Office Visit 05/30/2007 1:45p Tin Barbosa.11 Primary Open Angle MD Maday, rosanne Nassar M.D. Glaucoma Office Visit 05/06/2007 2:15p Tin Barbosa.11 Primary Open Angle MD Maday, rosanne Nassar M.D. Glaucoma Office Visit 04/08/2007 3:15p Tin Barbosa.11 Primary Open Angle MD Maday, rosanne Nassar M.D. Glaucoma Office Visit 09/11/2005 2:45p Tin Barbosa.11 Primary Open Angle MD Maday, rosanne Nassar M.D. Glaucoma Office Visit 04/30/2005 9:00a Tin Barbosa.11 Primary Open Angle MD Maday, rosanne Nassar M.D. Glaucoma Office Visit 04/30/2005 8:15a Tin Barbosa.11 Primary Open Angle MD Maday, rosanne Nassar M.D. Glaucoma Office Visit 03/18/2005 9:45a Tin Barbosa.11 Primary Open Angle MD Maday, rosanne Nassar M.D. Glaucoma Office Visit 02/16/2005 8:30a Tin Kellogg 365.01 Low Risk Alayna Nassar MD, rosanne Nassar M.D. Angle Glaucoma/ Suspect Plan of Treatment 03/08/2018 - Tin Nassar M.D.H40.1123 Primary open-angle glaucoma, left eye , severe stageComments:Smoking can increase the risk of developing or worsening any eye related disease, as well as affect your overall health. If you are a smoker, we strongly recommend that you quit.If you are not a smoker, we strongly recommend that you do not start. Your glaucoma is stable at this time in your left eye.Your eye pressure is within an acceptable range, and your testing does not show any further deterioration at this time. Please continue your treatment as directed and keep follow up appointments.Follow up:4 Month Follow Up IOP Check At your next visit, we are not planning to dilate your eyes. However, if you have any changes in your vision or new symptoms, there are certain situations that require us to dilate your eyes. If Dr. Nassar requests any additional testing, that may require extra time. If you have any questions before your next appointment, please call our office at .Q27.1134 Primary open-angle glaucoma, right eye, moderate stageComments: Your Glaucoma is stable at this time in your right eye. Your eye pressure is within an acceptable range, and your testing does not show any further deterioration at this time. Please continue your treatment as directed and keep follow up appointments.Z96.1 Presence of intraocular lensComments:The artificial lens implants in both eyes appear to be stable at this time.
[2018-04-01 14:46] VITALS: BP 138/47
--- NOTE | 2018-04-01 15:34 | ED ---
Throat Pain/Nasal Congestion - HPI Summary HPI Summary: 78 yr old female with the complaint of sinus pressure, post nasal drip, dizziness, left sided headache. Denies fever, chills. Denies dizziness. She reports she has chronic sinusitis, and this has been getting worse over the past week. She has no other complaints. - History of Current Complaint Chief Complaint: UCRespiratory Time Seen by Provider: 04/01/18 15:04 - Allergies/Home Medications Allergies/Adverse Reactions: Allergies Allergy/AdvReac Type Severity Reaction Status Date / Time codeine Allergy Shock Verified 04/01/18 14:46 acetaminophen AdvReac Nausea Verified 04/01/18 14:46 lactose AdvReac GI Verified 04/01/18 14:46 levofloxacin [From Levaquin] AdvReac Cramps Verified 04/01/18 14:46 meperidine AdvReac Hyper Verified 04/01/18 14:46 Home Medications: Home Medications Docusate CAP* [Colace Cap*] 200 mg PO BID PRN 04/01/18 [History Confirmed ] Methylsulfonylmethane [Methyl Sulfone] 500 gm MC DAILY 04/01/18 [History Confirmed 04/01/18] PMH/Surg Hx/FS Hx/Imm Hx Endocrine/Hematology History: Denies: Hx Diabetes Cardiovascular History: Reports: Hx Angina, Hx Cardiomegaly - slightly, Hx Hypertension, Hx Rheumatic Fever - as a child, Hx Valvular Heart Disease - valve replacements, Other Cardiovascular Problems/Disorders Denies: Hx Congestive Heart Failure, Hx Pacemaker/ICD Respiratory History: Denies: Hx Asthma GI History: Reports: Hx Gall Bladder Disease, Hx Irritable Bowel, Other GI Disorders - APPENDECTOMY, CHOLECYSTECTOMY History: Denies: Hx Dialysis, Hx Renal Disease Musculoskeletal History: Reports: Hx Arthritis, Hx Tendonitis, Other Musculoskeletal History - Fibromyalgia Denies: Hx Scoliosis Sensory History: Reports: Hx Cataracts, Hx Contacts or Glasses, Hx Glaucoma Denies: Hx Hearing Aid Opthamlomology History: Reports: Hx Cataracts, Hx Contacts or Glasses, Hx Glaucoma Neurological History: Reports: Hx Nerve Disease - fibromyalgia Denies: Other Neuro Impairments/Disorders Psychiatric History: Denies: Hx Panic Disorder - Cancer History Cancer Type, Location and Year: fibromyalgia Hx Chemotherapy: No - Surgical History Surgery Procedure, Year, and Place: Choley, appy, tonsils, hyster, heart valve replacement x 2, cataracts, glaucoma, vaginal prolapse Hx Anesthesia Reactions: No - Immunization History Date of Tetanus Vaccine: PT STATES UNSURE Date of Influenza Vaccine: 2012 Infectious Disease History: No Infectious Disease History: Reports: Hx Shingles, History Other Infectious Disease - rheumatic fever Denies: Traveled Outside the [place] in Last 30 Days - Family History Known Family History: Positive: Cardiac Disease, Hypertension, Other - CHF - Social History Alcohol Use: None Hx Substance Use: No Substance Use Type: Reports: None Hx Tobacco Use: No Smoking Status (MU): Never Smoked Tobacco Review of Systems Constitutional: Negative Positive: Nasal Discharge, Other - sinus pressure All Other Systems Reviewed And Are Negative: Yes Physical Exam Triage Information Reviewed: Yes Vital Signs On Initial Exam: Initial Vitals Temp Pulse Resp BP Pulse Ox 98.9 F 64 16 138/47 98 04/01/18 14:42 04/01/18 14:42 04/01/18 14:42 04/01/18 14:42 04/01/18 14:42 Vital Signs Reviewed: Yes Appearance: Positive: Well-Appearing, No Pain Distress Skin: Positive: Warm, Skin Color Reflects Adequate Perfusion Head/Face: Positive: Normal Head/Face Inspection Eyes: Positive: EOMI ENT: Positive: Hearing grossly normal, Nasal congestion, Nasal drainage, TMs normal, Sinus tenderness Neck: Positive: Nontender Respiratory/Lung Sounds: Positive: Clear to Auscultation, Breath Sounds Present Cardiovascular: Positive: RRR. Negative: Murmur Abdomen Description: Positive: Nontender Musculoskeletal: Positive: Strength/ROM Intact Neurological: Positive: Sensory/Motor Intact, Alert, Oriented to Person Place, Time, CN Intact II-III Psychiatric: Positive: Normal - Breanna Coma Scale Best Eye Response: 4 - Spontaneous Best Motor Response: 6 - Obeys Commands Best Verbal Response: 5 - Oriented Coma Scale Total: 15 Diagnostics - Vital Signs Vital Signs Temp Pulse Resp BP Pulse Ox 04/01/18 14:42 98.9 F 64 16 138/47 98 - Laboratory Lab Statement: Any lab studies that have been ordered have been reviewed, and results considered in the medical decision making process. EENT Course/Dx - Course Course Of Treatment: 78 yr old with sinusitis. Rx Augmentin - Diagnoses Provider Diagnoses: Sinusitis, Elevated blood pressure reading Discharge - Sign-Out/Discharge Documenting (check all that apply): Patient Departure All imaging exams completed and their final reports reviewed: No Studies - Discharge Plan Condition: Good Disposition: HOME Prescriptions: Amoxicillin/Clavulanate TAB* [Augmentin TAB 875*] 875 mg PO BID #20 tab Patient Education Materials: Sinusitis (ED), Hypertension (ED) Referrals: Alyson Escobar MD [Primary Care Provider] - - Billing Disposition and Condition Condition: GOOD Disposition: Home
== END 2018-04-01 15:40 | disposition home or self-care (01) ==
LOC: UCEAST 14:30
DX: J32.9 Chronic sinusitis, unspecified (principal); R03.0 Elevated blood-pressure reading, without diagnosis of hypertension; I10 Essential (primary) hypertension; M79.7 Fibromyalgia; Z88.5 Allergy status to narcotic agent; Z88.6 Allergy status to analgesic agent; Z88.8 Allergy status to other drugs, medicaments and biological substances; Z88.1 Allergy status to other antibiotic agents; Z91.011 Allergy to milk products
CPT/HCPCS: 99212; G0463

== ENCOUNTER 2019-02-13 19:29 | Emergency (ER) | payer MEDICARE ==
--- OUTSIDE RECORDS SUMMARY | 2019-02-13 19:36 | XMS REPORT | Summary of Care ---
:1940 Author Organization [facility] Address [address] [facility] [place] [address] Care Team Providers Name Role Phone Alyson Escobar Primary Care Provider Reason for Visit Reason Comments Injection flu Follow Up sinusitis, URI. Still feels a little full. Encounter Details Date Type Department Care Team Description 01/13/2019 Office Visit [place] [facility] Alyson Escobar MD Acute recurrent maxillary sinusitis (Primary Dx); Medicine [address] Essential hypertension; [address] [place] [address] USP current use of anticoagulant therapy; [place] [address] Arthralgia of left temporomandibular joint; [phone] Elevated blood protein; (Fax) Insomnia, unspecified type Allergies Active Allergy Reactions Severity Noted Date Comments Albuterol Other 11/09/2007 Interacts with beta-kwame Alc-Sertraline 05/26/2007 Cefdinir Musculoskeletal 08/20/2014 Leg cramping/pain Ciprofloxacin Hcl GI Reaction 02/05/2014 Irritable bowel Codeine Anaphylaxis 07/26/2007 Demerol SHANK CARRIER Reaction 07/26/2007 Levaquin Musculoskeletal 06/20/2010 Sudden onset muscle pain Cimetidine Hcl GI Reaction 11/08/2013 Worse pain in the stomach (burning ) Tylenol GI Reaction 06/28/2009 documented as of this encounter (statuses as of 01/13/2019) Medications Medication Sig Dispensed Refills Start Date End Date Status Brimonidine Tartrate Place 1 Drop 0 Active (ALPHAGAN P) 0.1 % to the Ophthalmic Solution external eye DAILY. Right eye 5-Hydroxytryptophan (5-HTP) Take 1 Cap by 30 Cap 0 01/15/2014 Active 100 MG Oral Cap mouth DAILY. DHEA 50 MG Oral Cap Take 0.5 Caps 0 01/15/2014 Active by mouth DAILY. latanoprost (XALATAN) 0.005 Place 1 Drop 0 Active % Ophthalmic Solution in right eye DAILY. Aspirin 81 MG Oral Take 1 Tab by 30 Tab 0 07/24/2014 Active TabIndications: Aortic mouth DAILY. valve replaced Ione-3 Fatty Acids (FISH Take by 0 Active OIL PO) mouth. LUTEIN PO Take by 0 Active mouth. ASTAXANTHIN PO Take by 0 Active mouth. Ascorbic Acid (VITAMIN C) Take by 0 Active 1000 MG Oral Tab mouth. B Complex Vitamins Take by 0 Active (VITAMIN-B COMPLEX PO) mouth. Multiple Vitamins-Minerals Take by 0 Active (DAILY MULTI PO) mouth. UBIQUINOL PO Take by 0 Active mouth. Methylsulfonylmethane (MSM Take by 0 Active PO) mouth. LECITHIN PO Take by 0 Active mouth. Flaxseed, Linseed, (FLAX Take by 0 Active SEED OIL PO) mouth. tramadol (ULTRAM) 50 MG Take 1 Tab by 40 Tab 1 05/17/2017 Active Oral TabIndications: mouth EVERY Sciatic nerve pain, left SIX HOURS NEEDED for Pain. Max Daily Amount: 4 Tabs. Collagen Hydrolysate Does by Does not 0 Active not apply Powder apply route. warfarin (COUMADIN) 7.5 MG Take 0.5-1 90 Tab 3 08/10/2018 Active Oral TabIndications: Aortic Tabs by mouth valve replaced, Mitral DAILY. 3.75mg valve replaced Mon/Wed/Wed and 7.5mg rest of week Saccharomyces boulardii Take by 0 Active (FLORASTOR PO) mouth. Bisoprolol Fumarate 10 MG Take 1 Tab by 90 Tab 3 08/15/2018 Active Oral Tab mouth DAILY. Olmesartan Medoxomil 20 MG Take 1 Tab by 90 Tab 3 08/31/2018 Active Oral TabIndications: mouth DAILY. Essential hypertension estradiol (ESTRACE) 0.5 MG TAKE 1 TABLET 90 Tab 1 09/13/2018 Active Oral TabIndications: BY MOUTH EVERY Menopause DAY amLodipine (NORVASC) 5 MG TAKE 1 TABLET 90 Tab 3 09/21/2018 Active Oral TabIndications: BY MOUTH EVERY Essential hypertension DAY zolpidem (AMBIEN) 5 MG Oral Take 1 Tab by 30 Tab 5 01/13/2019 Active TabIndications: Insomnia, mouth EVERY unspecified type BEDTIME NEEDED (`). Max Daily Amount: 5 mg. documented as of this encounter (statuses as of 01/13/2019) Active Problems Problem Noted Date Hemorrhagic disorder due to extrinsic circulating anticoagulants 12/14/2018 Essential hypertension 08/30/2015 Diarrhea 07/20/2013 Lung nodules 09/28/2011 Overview: 7 and 4 mm left lower lung nodules- 09/14- Repeat in [address] scan 11/15 no change in 7 mm nodule H/O: hysterectomy 06/22/2011 Chronic sinusitis 06/22/2011 Osteopenia 02/23/2011 Family hx of colon cancer 03/15/2009 Aortic valve replaced 05/27/2007 Overview: 1998- Follow Dr Velazco- Echo 03/15 - Mild aortic and mitral valve stenosis/ insufficiency- Normal LV function Mitral valve replaced 05/27/2007 Overview: 1998 Rheumatic heart disease 05/26/2007 USP current use of anticoagulant therapy 12/02/2006 Overview: Managed by: [facility] Referring Provider; RCrepetMD Indication: mechanical prosthetic mitral and aortic valves ([facility] Rishi) Target Range: 2.5-3.5 Duration: Lifelong Additional factors influencing anticoagulation: Ascorbic acid decreases warfarin effect Aspirin increases bleeding risk DHEA increases warfarin level Estradiol decreases warfarin effect Ione 3 fatty acid increases bleeding risk Updated Referral 12/2012, 01/10/14, 03/2015, 05/12/16, 06/09/17,07/13/18 Anticoagulation Orders 12/20/2012, 01/10/14, 04/17/15, 05/21/16, 06/10/17, 08/03/18 Fibromyalgia Overview: Controls with DHEA and MSN otc documented as of this encounter (statuses as of 01/13/2019) Resolved Problems Problem Noted Date Resolved Date Encounter for therapeutic drug monitoring 10/18/2009 06/06/2010 documented as of this encounter (statuses as of 01/13/2019) Immunizations Name Administration Dates Next Due Influenza (IM) Preservative Free 01/18/2016, 01/08/2015, 03/10/2013, 03/11/2012, 10/28/2010, 03/07/2010 Influenza Vaccine 65 Yrs + 01/13/2019 Influenza Vaccine High Dose 01/21/2018, 01/06/2017, 01/15/2014 Influenza Vaccine Whole 01/27/2008 Influenza Virus Vaccine - Whole 01/21/2007 PNEUMOCOCCAL POLYSACCHARIDE VACCINE 02/04/2007 Pneumococcal Conjugate(13 Valent) 06/07/2018 TDAP Vaccine 01/16/2013 documented as of this encounter Social History Tobacco Use Types Packs/Day Years Used Date Never Smoker Smokeless Tobacco: Never Used Alcohol Use Drinks/Week oz/Week Comments Yes 3 Standard drinks or equivalent 3.0 Sex Assigned at Date Recorded Not on file Job Start Date Occupation Industry Not on file Not on file Not on file Travel History Travel Start Travel End No recent travel history available. documented as of this encounter Last Filed Vital Signs Vital Sign Reading Time Taken Comments Blood Pressure 137/70 01/13/2019 2:10 PM EDT Pulse 58 01/13/2019 2:10 PM EDT Temperature 36.6 01/13/2019 2:10 PM EDT C (97.9 F) Respiratory Rate - - Oxygen Saturation 97% 01/13/2019 2:10 PM EDT Inhaled Oxygen Concentration - - Weight 67.1 kg (148 lb) 01/13/2019 2:10 PM EDT Height 166.4 cm (5' 5.5") 01/13/2019 2:10 PM EDT Body Mass Index 24.25 01/13/2019 2:10 PM EDT documented in this encounter Patient Instructions Patient InstructionsCreAlyson rascon MD - 01/13/2019 2:00 PM EDTPlan For the TMJ- Chew soft foods - Consider heat / coool fozia - Dentist For the EUSTACION TUBE DYSFUNCTION - Decongestant - documented in this encounter Progress Notes Alyson Escobar MD - 01/13/2019 2:00 PM EDT NAME:Erika Dickson [birth year] ENC Date: 01/13/2019 CC: Chief Complaint Patient presents with Injection flu Follow Up sinusitis, URI. Still feels a little full. Erika Dickson is a 78-y.o. female 1. Congestion / fullness of the left sideo f the face- Does not feel like the usual sinusitis- 2. Current Outpatient Medications Medication Sig 5-Hydroxytryptophan (5-HTP) 100 MG Oral Cap Take 1 Cap by mouth DAILY. amLodipine (NORVASC) 5 MG Oral Tab TAKE 1 TABLET BY MOUTH EVERY DAY Ascorbic Acid (VITAMIN C) 1000 MG Oral Tab Take by mouth. Aspirin 81 MG Oral Tab Take 1 Tab by mouth DAILY. ASTAXANTHIN PO Take by mouth. B Complex Vitamins (VITAMIN-B COMPLEX PO) Take by mouth. Bisoprolol Fumarate 10 MG Oral Tab Take 1 Tab by mouth DAILY. Brimonidine Tartrate (ALPHAGAN P) 0.1 % Ophthalmic Solution Place 1 Drop to the external eye DAILY. Right eye Collagen Hydrolysate Does not apply Powder by Does not apply route. DHEA 50 MG Oral Cap Take 0.5 Caps by mouth DAILY. estradiol (ESTRACE) 0.5 MG Oral Tab TAKE 1 TABLET BY MOUTH EVERY DAY Flaxseed, Linseed, (FLAX SEED OIL PO) Take by mouth. latanoprost (XALATAN) 0.005 % Ophthalmic Solution Place 1 Drop in right eye DAILY. LECITHIN PO Take by mouth. LUTEIN PO Take by mouth. Methylsulfonylmethane (MSM PO) Take by mouth. Multiple Vitamins-Minerals (DAILY MULTI PO) Take by mouth. Olmesartan Medoxomil 20 MG Oral Tab Take 1 Tab by mouth DAILY. Ione-3 Fatty Acids (FISH OIL PO) Take by mouth. Saccharomyces boulardii (FLORASTOR PO) Take by mouth. tramadol (ULTRAM) 50 MG Oral Tab Take 1 Tab by mouth EVERY SIX HOURS NEEDED for Pain. Max Daily Amount: 4 Tabs. UBIQUINOL PO Take by mouth. warfarin (COUMADIN) 7.5 MG Oral Tab Take 0.5-1 Tabs by mouth DAILY. 3.75mg Mon/Wed/Wed and 7.5mg rest of week zolpidem (AMBIEN) 5 MG Oral Tab Take 1 Tab by mouth EVERY BEDTIME NEEDED (`). Max Daily Amount: 5 mg. No current facility-administered medications for this visit. Patient Active Problem List Diagnosis Date Noted Hemorrhagic disorder due to extrinsic circulating anticoagulants (HCC) Essential hypertension 08/30/2015 Diarrhea 07/20/2013 Lung nodules 09/28/2011 7 and 4 mm left lower lung nodules- 09/14- Repeat in [address] scan 11/15 no change in 7 mm nodule H/O: hysterectomy 06/22/2011 Chronic sinusitis 06/22/2011 Osteopenia 02/23/2011 Family hx of colon cancer 03/15/2009 Aortic valve replaced 05/27/20071998- Follow Dr Velazco- Echo 03/15 - Mild aortic and mitral valve stenosis/ insufficiency- Normal LV function Mitral valve replaced 05/27/20071998 Rheumatic heart disease 05/26/2007 Fibromyalgia Controls with DHEA and MSN otc USP current use of anticoagulant therapy 12/02/2006 Managed by: [facility] Referring Provider; UriDE Indication: mechanical prosthetic mitral and aortic valves (St Rishi) Target Range: 2.5-3.5 Duration: Lifelong Additional factors influencing anticoagulation: Ascorbic acid decreases warfarin effect Aspirin increases bleeding risk DHEA increases warfarin level Estradiol decreases warfarin effect Ione 3 fatty acid increases bleeding risk Updated Referral 12/2012, 01/10/14, 03/2015, 05/12/16, 06/09/17,07/13/18 Anticoagulation Orders 12/20/2012, 01/10/14, 04/17/15, 05/21/16, 06/10/17, 08/03/18 Family History Problem Relation Age of Onset GI Mother GI Father Heart Father No cardiopulmonary symptoms No upper or lower GI complaints No urinary tract symptoms. No bruising/ bleeding. No neurological complaints . No insomnia.+ . Social History Tobacco Use Smoking status: Never Smoker Smokeless tobacco: Never Used Substance Use Topics Alcohol use: Yes Alcohol/week: 3.0 standard drinks Types: 3 Standard drinks or equivalent per week Drug use: No OBJECTIVE: BP 137/70 | Pulse 58 | Temp 97.9 F (36.6 C) | Ht 5' 5.5" (1.664 m) | Wt 148 lb (67.1 kg) | SpO2 97% | BMI 24.25 kg/m . Heent neg Neck no JVD, thyromegaly or bruit Lungs Clear CV rrr Abd soft, nontender, no organomegaly Ext no edema; no lesions; pulses intact Neuro: intellect intact ; motor including gait unremarkable A/P ICD-9-CM ICD-10-CM 1. Acute recurrent maxillary sinusitis 461.0 J01.01 2. 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 Arthralgia of left temporomandibular joint 524.62 M26.622 5. Elevated blood protein 273.8 E88.09 COMPREHENSIVE METABOLIC PANEL 6. Insomnia, unspecified type 780.52 G47.00 zolpidem (AMBIEN) 5 MG Oral Tab Patient Instructions Plan For the TMJ- Chew soft foods - Consider AUTHOR: Alyson Escobar MD 15:12 01/13/2019 documented in this encounter Plan of Treatment Date Type Specialty Care Team Description 01/30/2019 AntiCoag Anticoagulation 08/02/2019 Orders Only Cardiology 08/14/2019 Office Visit Cardiology Tono Ho MD [address] [place] [address] [phone] Name Type Priority Associated Diagnoses Order Schedule COMPREHENSIVE METABOLIC Lab Routine Elevated blood protein Expected: 2018 PANEL (Approximate), Expires: 07/12/2019 Health Maintenance Due Date Last Done Comments ZOSTER IMMUNIZATION SERIES 01/31/1990 (1 of 2) MEDICARE ANNUAL WELLNESS 01/16/2014 01/16/2013, 06/22/2011 VISIT INFLUENZA VACCINE (#1) 2018 01/21/2018, 01/06/2017, 01/18/2016, Additional history exists DEPRESSION SCREENING 12/15/2019 12/14/2018 FALL RISK ASSESSMENT 12/15/2019 12/14/2018, 12/14/2018 OSTEOPOROSIS SCREENING 04/10/2021 04/10/2011 PNEUMOCOCCAL 65+YRS Completed 06/07/2018, 02/04/2007 HPV IMMUNIZATION SERIES Aged Out No longer eligible based on patient's age to complete this topic MENINGOCOCCAL VACCINE IMM Aged Out No longer eligible based on patient's age to complete this topic documented as of this encounter Goals Goal Patient Goal Associated Recent Patient-Stated? Author Type Problems Progress Blood Pressure Blood Pressure 137/70 No Luz, < 150/90 (01/13/2019 MD Alyson 2:10 PM EDT) Note: This is an individualized treatment (blood pressure) goal for Erika Dickson: Displayed above (on the left) is your goal for blood pressure control. Your most recent blood pressure is also shown above, on the right. You should try to achieve blood pressures that are lower than your goal listed above (on the left). Take all prescribed medications as directed Self-management Alyson Linder MD Note: This is an individualized self-management goal for Erika Dickson: Please take all prescribed medications as directed. 1. Do not skip doses. If you cannot afford your medications, talk with your doctor. 2. Use a pill reminder system such as a pill box if needed. Your pharmacist can help you with this. 3. Contact your Pharmacy 5 days before your medication runs out. If you cannot take your medications for any reasons, talk with your doctor. 4. Please bring all of your medication bottles and inhalers (or a list of all your medications/inhalers) with you to every visit. Potential barriers to meeting all of your care plan goals will continue to be addressed on an ongoing basis. documented as of this encounter Results Not on filedocumented in this encounter Visit Diagnoses Diagnosis Acute recurrent maxillary sinusitis - Primary Acute maxillary sinusitis Essential hypertension Unspecified essential hypertension USP current use of anticoagulant therapy Arthralgia of left temporomandibular joint Arthralgia of temporomandibular joint Elevated blood protein Other disorders of plasma protein metabolism Insomnia, unspecified type documented in this encounter Insurance Payer Benefit Plan / Subscriber ID Effective Dates Phone Address Type Group [employer] MEDICARE [facility] xxxxxxxx 2018-Present [place], [place]([id number]) Guarantor Name Account Type Relation to Date of Phone Billing Address Patient Erika Dickson Personal/Famil 1940 [phone] [place], [place] (Work) [id number] documented as of this encounter
[2019-02-13 19:45] VITALS: BP 147/66
--- NOTE | 2019-02-13 19:51 | UC ---
Dental HPI - HPI Summary HPI Summary: 79 y/o female presents to the urgent care c/o Dental pain on right lower side s/ p root canal procedure last Wednesday02/08/2019. She had a fracture molar there and they did the root canal, but didn't RX any antibiotics. Now she has swelling, pain adn developed fever of 101F last night. Pain is 6/10 and she has been taken Tylenol PO to alleviate symptoms. Pt has H of TMJ. Pt denies trismus, KRAUS, dizziness, SOB, chest pain, abdominal pain, N/V/D. She has a f/u appt next week. However, she called and couldn't get a sooner appt. - History of Current Complaint Chief Complaint: UCDentalProblem Stated Complaint: DENTAL PAIN Hx Obtained From: Patient Onset/Duration: Gradual Onset, Lasting Days - 5, Still Present, Worse Since - 1 day Severity: Moderate Pain Intensity: 6 Pain Scale Used: 0-10 Numeric Aggravating Factor(s): Chewing Alleviating Factor(s): OTC Meds Related History: Previous Dental Care on Same Tooth - toot canal, Swelling - Allergies/Home Medications Allergies/Adverse Reactions: Allergies Allergy/AdvReac Type Severity Reaction Status Date / Time codeine Allergy Shock Verified 02/13/19 19:46 acetaminophen AdvReac Nausea Verified 02/13/19 19:46 lactose AdvReac GI Verified 02/13/19 19:46 levofloxacin [From Levaquin] AdvReac Cramps Verified 02/13/19 19:46 meperidine AdvReac Hyper Verified 02/13/19 19:46 Home Medications: Home Medications Omasartin 1 tab PO DAILY 02/13/19 [History Confirmed 02/13/19] PMH/Surg Hx/FS Hx/Imm Hx Previously Healthy: Yes Other Endocrine History: TMJ Cardiovascular History: Hypertension - Surgical History Surgical History: Yes Surgery Procedure, Year, and Place: Choley, appy, tonsils, hyster, heart valve replacement x 2, cataracts, glaucoma, vaginal prolapse - Family History Known Family History: Positive: Cardiac Disease, Hypertension, Other - CHF - Social History Occupation: Retired Lives: With Family Alcohol Use: None Substance Use Type: None Smoking Status (MU): Never Smoked Tobacco - Immunization History Most Recent Influenza Vaccination: 2015 Most Recent Tetanus Shot: 2013 Most Recent Pneumonia Vaccination: within last 10 years Review of Systems All Other Systems Reviewed And Are Negative: Yes Constitutional: Positive: Negative Skin: Positive: Negative Eyes: Positive: Negative ENT: Positive: Dental Pain - Rt lower side pain w/ swelling Cardiovascular: Positive: Negative Gastrointestinal: Positive: Negative Genitourinary: Positive: Negative Motor: Positive: Negative Neurovascular: Positive: Negative Musculoskeletal: Positive: Negative Neurological: Positive: Negative Psychological: Positive: Negative Is Patient Immunocompromised?: No Physical Exam - Summary Physical Exam Summary: Vital Signs Reviewed: Yes General: Well-Appearing, Well-Nourished old female sitting in the examining table w/o any respiratory or pain distress Eyes: Positive: Conjunctiva Clear - PERRLA, EOMI, ENT: Positive: Normal ENT inspection, Hearing grossly normal, Pharynx normal, TMs normal - B/L external ear canals clear,. Negative: Tonsillar swelling, Tonsillar exudate, Trismus Dental: Positive: temporary cap on molars #19 and 20 w/ gingival swelling and erythema, tender to percussion. involves tissue surrounding theses molars, w/ positive anterior Cervical Lymphadenopathy. Neck: Positive: Supple Respiratory: Positive: Chest non-tender, Lungs clear, Normal breath sounds, No respiratory distress Cardiovascular: Positive: RRR, No Murmur, Pulses Normal, Brisk Capillary Refill Abdomen Description: Positive: Nontender, No Organomegaly, Soft. Negative: CVA Tenderness (R), CVA Tenderness (L) Bowel Sounds: Positive: Present Musculoskeletal: Positive: Strength Intact, ROM Intact, No Edema Neurological Exam: Normal Psychological Exam: Normal Skin Exam: Normal Triage Information Reviewed: Yes Vital Signs: Initial Vital Signs Temp 98.4 F 02/13/19 19:38 Pulse 69 02/13/19 19:38 Resp 16 02/13/19 19:38 BP 147/66 02/13/19 19:38 Pulse Ox 98 02/13/19 19:38 Dental Complaint Course/Dx - Course Course Of Treatment: 79 y/o female presents to the urgent care c/o Dental pain on right lower side s/ p root canal procedure last Wednesday02/08/2019. She had a fracture molar there and they did the root canal, but didn't RX any antibiotics. Now she has swelling, pain adn developed fever of 101F last night. Pain is 6/10 and she has been taken Tylenol PO to alleviate symptoms. Pt has H of TMJ. Pt denies trismus, KRAUS, dizziness, SOB, chest pain, abdominal pain, N/V/D. She has a f/u appt next week. However, she called and couldn't get a sooner appt. Hx obtained. Pt with dental abscess around molar #19 w/ gross decay on examination. Pt given Ibuprofen PO and viscous Lidocaine at the clinic to alleviate symptoms by the nurse. Pt Rx Penicillin PO as directed below. Pt strongly advised to continue taking Tylenol PO f/u with her Dentist as soon as possible for further evaluation and treatment. Pt's BP is elevated today advised to decrease salt in diet, monitor BP and f/u with PCP for further management. D/C instructions explained. Pt understood and agreed with plan of care. - Differential Dx/Diagnosis Differential Diagnosis/Dx: Dental Abscess, Dental Caries, Odontogenic Pain, Peridontic Disease, Peritonsillar Abcess Provider Diagnosis: Dental abscess, Uncontrolled hypertension Discharge ED - Sign-Out/Discharge Documenting (check all that apply): Patient Departure - D/C home All imaging exams completed and their final reports reviewed: No Studies - Discharge Plan Condition: Stable Disposition: HOME Prescriptions: Penicillin VK 500 MG TAB(NF) [Penicillin VK 500 mg Tab] 500 mg PO QID #40 tab Patient Education Materials: Dental Abscess (ED) Referrals: Alyson Escobar MD [Primary Care Provider] - 2 Days Additional Instructions: 1-Please take full course of antibiotics to avoid resistance. First dose given tonight at the clinic. Take yogurts w/ probiotics or Culturelle to protect your GI system 2- Continue taking Tylenol PO q6-8hrs prn after meals to alleviate pain and swelling. 3- F/u with your Dentist on your appt this coming for further management on your root canal 4-If symptoms worsen and temperature is not contorl w/ medications please go immediately to the ER for further management you may need IV antibiotics. 5-Your BP is elevated today. Please take your BP medications and decrease salt in your diet, monitor BP and if it continues to be elevated please f/u with your PCP for further management. If you develop chest pain, dizziness, visual disturbances, SOB, or severe KRAUS please go immediately to the ER for further management - Billing Disposition and Condition Condition: STABLE Disposition: Home - Attestation Statements Provider Attestation: Per institutional requirements, I have reviewed the chart, however, I was not consulted specifically or made aware of this patient by the midlevel provider. I did not personally evaluate, interact with , or disposition this patient.
[2019-02-13] MEDS ORDERED: Ondansetron ODT TAB* 4 MG PO ONE (20:09)
[2019-02-13] MEDS ORDERED: Acetaminophen TAB* 325 MG PO ONE (20:10)
[2019-02-13] MEDS ORDERED: Penicillin VK TAB* 250 MG PO ONE (20:50)
== END 2019-02-13 21:09 | disposition home or self-care (01) ==
LOC: UCEAST 19:29
DX: K04.7 Periapical abscess without sinus (principal); I10 Essential (primary) hypertension; Z88.5 Allergy status to narcotic agent; Z88.6 Allergy status to analgesic agent; Z91.011 Allergy to milk products; Z88.1 Allergy status to other antibiotic agents
CPT/HCPCS: 99212; A9270-GY; G0463

== ENCOUNTER 2019-03-22 19:45 | Emergency (ER) | payer MEDICARE ==
--- NOTE | 2019-03-22 19:50 | UC ---
Abdominal Pain Female HPI - HPI Summary HPI Summary: Lower abd pain x1wk at lower ad. she was rx'd antibx for a tooth and stated the pain went away at one point. she developed a fever of 101.8F at one point but that also resolved w/ the antibx. Has had hysterectomy, appendectomy. Certain movements make it worse. Pt requesting antibx to help w/ pain. - History of Current Complaint Chief Complaint: UCAbdominalPain Stated Complaint: abdOMINAL PAIN Time Seen by Provider: 03/22/19 19:46 ?: No Onset/Duration: Sudden Onset - ONE WEEK AGO Severity Initially: Mild Severity Currently: Mild Location: Discrete At: LUQ, Discrete At: LLQ Radiates: No Aggravating Factor(s): Movement Alleviating Factor(s): Nothing Allergies/Adverse Reactions: Allergies Allergy/AdvReac Type Severity Reaction Status Date / Time codeine Allergy Shock Verified 03/22/19 19:49 acetaminophen AdvReac Nausea Verified 03/22/19 19:49 lactose AdvReac GI Verified 03/22/19 19:49 levofloxacin [From Levaquin] AdvReac Cramps Verified 03/22/19 19:49 meperidine AdvReac Hyper Verified 03/22/19 19:49 Home Medications: Home Medications Cbd Oil 03/22/19 [History] PMH/Surg Hx/FS Hx/Imm Hx Cardiovascular History: Hypertension, Atrial Fibrillation GI/ History: Other - pessary - Surgical History Surgical History: Yes Surgery Procedure, Year, and Place: Choley, appy, tonsils, hyster, heart valve replacement x 2, cataracts, glaucoma, vaginal prolapse - Family History Known Family History: Positive: Cardiac Disease, Hypertension, Other - CHF - Social History Alcohol Use: None Substance Use Type: None Smoking Status (MU): Never Smoked Tobacco - Immunization History Most Recent Influenza Vaccination: 2016 Most Recent Tetanus Shot: 2013 Most Recent Pneumonia Vaccination: within last 10 years Review of Systems All Other Systems Reviewed And Are Negative: Yes Constitutional: Positive: Fever. Negative: Chills, Fatigue Skin: Negative: Rash Cardiovascular: Negative: Chest Pain Gastrointestinal: Positive: Abdominal Pain. Negative: Vomiting, Diarrhea, Nausea Genitourinary: Negative: Dysuria, Abnormal Bleeding Neurological: Negative: Weakness Physical Exam Triage Information Reviewed: Yes Appearance: Well-Appearing Vital Signs Reviewed: Yes Neck: Positive: Supple Respiratory Exam: Normal Cardiovascular Exam: Normal Abdomen Description: Positive: Soft, Other: - mild tenderness at lower quadrants.. Negative: CVA Tenderness (R), CVA Tenderness (L), Distended, Guarding, Pulsatile Mass Bowel Sounds: Positive: Present Skin: Negative: Rashes Abd Pain Female Course/Dx - Course Course Of Treatment: Lower abd pain x1 wk w/ a fever that has since resolved. She has no appendix or uterus. She was on antibx for a tooth at one point. No other s/sx. On exam there was mild lower abd tenderness no peritonitis. NO obvious UTI on UA. BP elevated and she will speak to pcp about this. Plan is to have her go to ED to r/o concerning sources fore her lower abd pain. She will likely need a scan. We disc this at length and I described all the possible dx it could be. She will go this evening. Stable. - Differential Dx/Diagnosis Differential Diagnosis: Bowel Obstruction, Constipation, Diverticulitis, Pelvic Inflammatory Disease, Urinary Tract Infection Provider Diagnosis: Abdominal pain Discharge ED - Sign-Out/Discharge Documenting (check all that apply): Patient Departure All imaging exams completed and their final reports reviewed: No Studies - Discharge Plan Condition: Good Disposition: HOME-RECOMMEND TO ED Patient Education Materials: Acute Abdominal Pain (ED) Referrals: Alyson Escobar MD [Primary Care Provider] - - Billing Disposition and Condition Condition: GOOD Disposition: Home-Recommend to ED
[2019-03-22 19:55] VITALS: BP 190/68
== END 2019-03-22 20:15 | disposition home health service (06) ==
LOC: UCEAST 19:45
DX: R10.32 Left lower quadrant pain (principal); R10.31 Right lower quadrant pain; R50.9 Fever, unspecified; I10 Essential (primary) hypertension; I48.91 Unspecified atrial fibrillation; Z79.01 Long term (current) use of anticoagulants; Z90.710 Acquired absence of both cervix and uterus; Z90.89 Acquired absence of other organs; Z88.5 Allergy status to narcotic agent; Z88.6 Allergy status to analgesic agent; Z88.1 Allergy status to other antibiotic agents; Z91.011 Allergy to milk products
CPT/HCPCS: 81003; 87086; 99212; G0463

== ENCOUNTER 2019-03-22 20:33 | Emergency (ER) | payer MEDICARE ==
[2019-03-22 21:48] LABS: ABS Basophils 0.1 10^3/ul (0-0.2); ABS Eosinophils 0.2 10^3/ul (0-0.6); ABS Lymphocytes 1.2 10^3/ul (1.0-4.8); ABS Monocytes 0.8 10^3/ul (0-0.8); ABS Neutrophils 3.8 10^3/ul (1.5-7.7); Eosinophil % 2.6 %; Hematocrit 42 % (35-47); Hemoglobin 14.7 g/dL (12.0-16.0); Lymphocyte % 19.9 %; Mean Corpuscular HGB Conc 35 g/dL (31-36); Mean Corpuscular Hemoglobin 30 pg (27-31); Mean Corpuscular Volume 85 fL (80-97); Mean Platelet Volume 9.6 fL (7.4-10.4); Platelet Count 194 10^3/uL (150-450); Red Blood Count 4.98 10^6 /uL (3.70-4.87); Red Cell Distribution Width 14 % (10-15)
[2019-03-22 22:06] LABS: Troponin I 0.01 ng/mL (<0.03)
[2019-03-22 22:18] LABS: Albumin 4.3 g/dL (3.2-5.2); Albumin/Globulin Ratio 1.1 (1-3); BUN/Creatinine Ratio 18.8 (8-20); C Reactive Protein 10.63 mg/L (<8.01); Calcium 9.8 mg/dL (8.6-10.3); EGFR African American 108.3 (>60); EGFR Non-African American 89.5 (>60); Potassium 3.9 mmol/L (3.5-5.0); Total Bilirubin 0.6 mg/dL (0.2-1.0); Total Protein 8.3 g/dL (6.4-8.9)
[2019-03-22 23:25] LABS: Urine Appearance Clear; Urine Bilirubin Negative (Negative); Urine Blood Negative (Negative); Urine Color Straw; Urine Glucose Negative (Negative); Urine Ketones Negative (Negative); Urine Nitrite Negative (Negative); Urine Protein Negative (Negative); Urine Specific Gravity 1.003 (1.010-1.030); Urine Urobilinogen Negative (Negative)
[2019-03-22 23:29] LABS: Urine Bacteria 1+ (Absent); Urine Red Blood Cell Trace(0-2/hpf) (Absent); Urine Squamous Epithelial Cell Present (Absent); Urine White Blood Cell Trace(0-5/hpf) (Absent)
--- NOTE | 2019-03-22 23:29 | ED ---
GI/ HPI - HPI Summary HPI Summary: Patient is a 79 y/o F presenting to [facility] with complaints of lower abdominal pain. She was evaluated at convenient care earlier today and was sent to ED for CT. Pain has been present for the past two days and is characterized as a burning sensation. No radiation of pain is noted, but she states that the pain is worse on her left side. No medications taken for her pain, no similar previous episodes noted. No N/V/D, changes in appetite reported. She notes that she had a fever a week ago. Patient states that she had taken antibiotics at the time due to dental-related infection. On triage, pain is rated 5/10. Ambulation and going to the bathroom aggravate Sx. PMHx of HTN for which she takes 3 BP meds is noted. She has two artificial cardiac valves as well. Hx of fibromylagia endorsed. PSHx of cholecystectomy noted. Hx of vaginal prolapse as well, she states that she anticipates that she will have surgery for this some time next month. Patient claims that she had a "botched" surgery for this three years ago. Home medications and allergies are reviewed. - History of Current Complaint Chief Complaint: EDAbdPain Time Seen by Provider: 03/22/19 23:04 Stated Complaint: HIGH BLOOD PRESSURE/BURNING WHEN URINATING PER PT Hx Obtained From: Patient Onset/Duration: Started Days Ago, Still Present Timing: Lasting Days Severity: Moderate Current Severity: Moderate Pain Intensity: 5 Location of Pain: Other - lower abdomen Pain Characteristics: Burning Associated Signs and Symptoms: Positive: Fever - a week ago, Abdominal Pain, Other: - positive - urination/bowel movements aggravate pain. Negative: Nausea , Vomiting, Diarrhea, Change in Appetite Aggravating Factor(s): Urination, Bowel Movement, Walking/Exertion Alleviating Factor(s): Nothing - Additional Pertinent History Primary Care Physician: [id number] - Allergy/Home Medications Allergies/Adverse Reactions: Allergies Allergy/AdvReac Type Severity Reaction Status Date / Time codeine Allergy Shock Verified 03/22/19 19:49 acetaminophen AdvReac Nausea Verified 03/22/19 19:49 lactose AdvReac GI Verified 03/22/19 19:49 levofloxacin [From Levaquin] AdvReac Cramps Verified 03/22/19 19:49 meperidine AdvReac Hyper Verified 03/22/19 19:49 PMH/Surg Hx/FS Hx/Imm Hx Endocrine/Hematology History: Denies: Hx Diabetes Cardiovascular History: Reports: Hx Angina, Hx Cardiomegaly - slightly, Hx Hypertension, Hx Rheumatic Fever - as a child, Hx Valvular Heart Disease - valve replacements, Other Cardiovascular Problems/Disorders Denies: Hx Congestive Heart Failure, Hx Pacemaker/ICD Respiratory History: Denies: Hx Asthma GI History: Reports: Hx Gall Bladder Disease, Hx Irritable Bowel, Other GI Disorders - APPENDECTOMY, CHOLECYSTECTOMY History: Denies: Hx Dialysis, Hx Renal Disease Musculoskeletal History: Reports: Hx Arthritis, Hx Tendonitis, Other Musculoskeletal History - Fibromyalgia Denies: Hx Scoliosis Sensory History: Reports: Hx Cataracts, Hx Contacts or Glasses, Hx Glaucoma Denies: Hx Hearing Aid Opthamlomology History: Reports: Hx Cataracts, Hx Contacts or Glasses, Hx Glaucoma Neurological History: Reports: Hx Nerve Disease - fibromyalgia Denies: Other Neuro Impairments/Disorders Psychiatric History: Denies: Hx Panic Disorder - Cancer History Cancer Type, Location and Year: fibromyalgia Hx Chemotherapy: No - Surgical History Surgery Procedure, Year, and Place: Choley, appy, tonsils, hyster, heart valve replacement x 2, cataracts, glaucoma, vaginal prolapse Hx Anesthesia Reactions: No - Immunization History Date of Tetanus Vaccine: PT STATES UNSURE Date of Influenza Vaccine: 2012 Infectious Disease History: No Infectious Disease History: Reports: Hx Shingles, History Other Infectious Disease - rheumatic fever Denies: Traveled Outside the [place] in Last 30 Days - Family History Known Family History: Positive: Cardiac Disease, Hypertension, Other - CHF - Social History Alcohol Use: None Hx Substance Use: No Substance Use Type: Reports: None Hx Tobacco Use: No Smoking Status (MU): Never Smoked Tobacco Review of Systems - ROS Summary Review of Systems Summary: Home Medications Medication Instructions Recorded Confirmed Type Bisoprolol TAB* [Zebeta TAB*] 10 mg PO BEDTIME 12/18/12 04/01/18 History Estradiol TAB(NF) 0.5 mg PO QAM 12/18/12 02/13/19 History Warfarin TAB(*) [Coumadin TAB(*)] 3.75 mg PO SEE INSTRUCTIONS 12/18/12 02/13/19 History Prasterone (DHEA) CAP (NF) [Dhea 50 mg PO QAM 01/14/16 02/13/19 History Cap (NF)] Warfarin TAB(*) [Coumadin TAB(*)] 7.5 mg PO SUTUWEFRSA 01/14/16 02/13/19 History amLODIPine TAB* [Norvasc 5 mg TAB*] 5 mg PO QAM 01/14/16 02/13/19 History Latanoprost 0.005% OPTH (NF) 1 drop RIGHT EYE BEDTIME 02/25/16 02/13/19 History [Xalatan 0.005% OPTH*] Methylsulfonylmethane [Methyl 500 gm MC DAILY 04/01/18 04/01/18 History Sulfone] Omasartin 1 tab PO DAILY 02/13/19 02/13/19 History Cbd Oil 03/22/19 History Positive: Fever - a week ago, on vitals, temp is 98.7 F Gastrointestinal: Other - negative - decreased appetite Positive: Abdominal Pain. Negative: Vomiting, Diarrhea, Nausea Genitourinary: Other - positive - urination/bowel movements aggravate pain All Other Systems Reviewed And Are Negative: Yes Physical Exam - Summary Physical Exam Summary: General: Well-developed, Well-nourished female. Mild discomfort noted. HEENT: Normocephalic, Atraumatic. Eyes: Conjuctiva normal, PERRL. Oropharynx: Clear, mucous membranes moist, (-) exudates. Neck: Soft, FROM, (-) lymphadenopathy, (-) thyromegaly, (-) JVD. Cardiovascular: Normal sinus rhythm, (-) murmur. Lungs: Clear to auscultation bilaterally (-) wheezes, (-) rales, (-) rhonchi. Abdomen: Moderate suprapubic tenderness noted. Soft, non-distended, (-) organomegaly, normal bowel sounds. Back: (-) CVA tenderness Extremities: No edema. Skin: Warm, dry, (-) rash. Neuro: Alert and oriented x3, no focal deficits. Psychiatric: Mood normal, affect normal. Triage Information Reviewed: Yes Vital Signs On Initial Exam: Initial Vitals Temp Pulse Resp BP Pulse Ox 98.7 F 78 18 187/98 98 03/22/19 20:36 03/22/19 20:36 03/22/19 20:36 03/22/19 20:36 03/22/19 20:36 Vital Signs Reviewed: Yes Procedures - Sedation Patient Received Moderate/Deep Sedation with Procedure: No Diagnostics - Vital Signs Vital Signs Temp Pulse Resp BP Pulse Ox 03/22/19 20:36 98.7 F 78 18 187/98 98 - Laboratory Lab Results: Lab Results 03/22/19 03/22/19 03/22/19 Range/Units 21:41 21:41 21:42 WBC 6.0 (3.5-10.8) 10^3/uL RBC 4.98 H (3.70-4.87) 10^6 /uL Hgb 14.7 (12.0-16.0) g/dL Hct 42 (35-47) % MCV 85 (80-97) fL MCH 30 (27-31) pg MCHC 35 (31-36) g/dL RDW 14 (10-15) % Plt Count 194 (150-450) 10^3/uL MPV 9.6 (7.4-10.4) fL Neut % (Auto) 62.7 % Lymph % (Auto) 19.9 % Maverick % (Auto) 13.5 % Eos % (Auto) 2.6 % Baso % (Auto) 1.3 % Absolute Neuts (auto) 3.8 (1.5-7.7) 10^3/ul Absolute Lymphs (auto) 1.2 (1.0-4.8) 10^3/ul Absolute Monos (auto) 0.8 (0-0.8) 10^3/ul Absolute Eos (auto) 0.2 (0-0.6) 10^3/ul Absolute Basos (auto) 0.1 (0-0.2) 10^3/ul Absolute Nucleated RBC 0.0 10^3/ul Nucleated RBC % 0.0 Sodium 139 (135-145) mmol/L Potassium 3.9 (3.5-5.0) mmol/L Chloride 104 (101-111) mmol/L Carbon Dioxide 29 (22-32) mmol/L Anion Gap 6 (2-11) mmol/L BUN 12 (6-24) mg/dL Creatinine 0.64 (0.51-0.95) mg/dL Est GFR ( Amer) 108.3 (>60) Est GFR (Non-Af Amer) 89.5 (>60) BUN/Creatinine Ratio 18.8 (8-20) Glucose 96 (70-100) mg/dL Lactic Acid 0.7 (0.5-2.0) mmol/L Calcium 9.8 (8.6-10.3) mg/dL Total Bilirubin 0.60 (0.2-1.0) mg/dL AST 39 (13-39) U/L ALT 22 (7-52) U/L Alkaline Phosphatase 113 H (34-104) U/L Troponin I 0.01 (<0.03) ng/mL C-Reactive Protein 10.63 H (<8.01) mg/L Total Protein 8.3 (6.4-8.9) g/dL Albumin 4.3 (3.2-5.2) g/dL Globulin 4.0 (2-4) g/dL Albumin/Globulin Ratio 1.1 (1-3) Lipase 49 (11.0-82.0) U/L Result Diagrams: 03/22/19 21:41 03/22/19 21:42 Lab Statement: Any lab studies that have been ordered have been reviewed, and results considered in the medical decision making process. - CT ABD/PEL CT CT Interpretation Completed By: Radiologist Summary of CT Findings: IMPRESSION: No acute CT pathology. THIS REPORT WAS REVIEWED BY ED PHYSICIAN. - EKG 2045 Cardiac Rate: NL - rate of 76 BPM EKG Rhythm: Sinus Rhythm Summary of EKG Findings: EKG showed NSR with rate of 76 BPM, no STEMI. EKG was reviewed and interpreted by ED physician. GIGU Course/Dx - Course Course Of Treatment: 79-year-old year-old female presents with lower abdominal tenderness. Went to walk-ins. Urine negative. Referred here. Patient with mild discomfort in her lower abdomen. Workup demonstrated essentially normal labs and urine. CT normal. Patient discharged home. Follow-up with [facility]. Follow-up sooner for any worsening symptoms. - Diagnoses Provider Diagnoses: Lower abdominal pain Discharge ED - Sign-Out/Discharge Documenting (check all that apply): Patient Departure - DISCHARGE - Discharge Plan Condition: Stable Disposition: HOME Patient Education Materials: Acute Abdominal Pain (ED) Referrals: Alyson Escobar MD [Primary Care Provider] - 3 Days Additional Instructions: PLEASE RETURN TO ED FOR ANY NEW OR WORSENING SYMPTOMS. PLEASE FOLLOW UP WITH YOUR PRIMARY CARE PHYSICIAN WITHIN THREE DAYS. - Billing Disposition and Condition Condition: STABLE Disposition: Home - Attestation Statements Document Initiated by Scribe: Yes Documenting Scribe: JOSEPH CORONADO Provider For Whom Scribe is Documenting (Include Credential): NELLY WYNNE MD Scribe Attestation: I, JOSEPH CORONADO, scribed for NELLY WYNNE MD on 03/23/19 at 0144. Scribe Documentation Reviewed: Yes Provider Attestation: The documentation as recorded by the JOSEPH hartmann accurately reflects the service I personally performed and the decisions made by me, NELLY WYNNE MD Status of Scribe Document: Viewed
[2019-03-23] MEDS: Iohexol 300* (CONTRAST) 10 ML SDV IV ONE (00:02)
[2019-03-23 01:21] VITALS: BP 157/66
== END 2019-03-23 01:25 | disposition home or self-care (01) ==
LOC: ED 20:33
DX: R10.30 Lower abdominal pain, unspecified (principal); I10 Essential (primary) hypertension; Z95.2 Presence of prosthetic heart valve; Z90.49 Acquired absence of other specified parts of digestive tract; Z90.89 Acquired absence of other organs; Z79.01 Long term (current) use of anticoagulants; Z79.899 Other long term (current) drug therapy; Z88.1 Allergy status to other antibiotic agents; Z88.5 Allergy status to narcotic agent; Z88.8 Allergy status to other drugs, medicaments and biological substances
CPT/HCPCS: 36415; 74177; 80053; 81003; 81015; 83605; 83690; 84484; 85025; 86140; 93005; 99282; Q9967

== ENCOUNTER 2022-02-14 11:50 | Inpatient (IN) ==
[2022-02-14] MEDS ORDERED: Pantoprazole VIAL 40 MG VIAL IV ONE (11:56)
[2022-02-14] MEDS ORDERED: Ondansetron 4 mg VIAL 2 MG/ML 2 ml VIAL IV ONE (12:00)
[2022-02-14] MEDS ORDERED: NS 0.9% 1000 ml BAG 1,000 ML IV ONE (12:00)
[2022-02-14 12:30] LABS: ABS Lymphocytes 0.9 10^3/ul (1.0-4.8); ABS Monocytes 0.6 10^3/ul (0-0.8); ABS Neutrophils 11.3 10^3/ul (1.5-7.7); Eosinophil % 0.1 %; Hematocrit 31 % (35-47); Lymphocyte % 6.8 %; Mean Corpuscular HGB Conc 33 g/dL (31-36); Mean Corpuscular Hemoglobin 27 pg (27-31); Mean Corpuscular Volume 84 fL (80-97); Mean Platelet Volume 9.9 fL (7.4-10.4); Platelet Count 201 10^3/uL (150-450); Red Blood Count 3.65 10^6 /uL (3.70-4.87); Red Cell Distribution Width 14 % (10-15); White Blood Count 12.9 10^3/uL (3.5-10.8)
[2022-02-14 12:55] LABS: Albumin 3.9 g/dL (3.2-5.2); Albumin/Globulin Ratio 1.3 (1-3); C Reactive Protein 3.46 mg/L (<8.01); Calcium 8.9 mg/dL (8.6-10.3); Potassium 3.5 mmol/L (3.5-5.0); Total Bilirubin 0.4 mg/dL (0.2-1.0); Total Protein 6.9 g/dL (6.4-8.9); eGFR CKD-EPI 60.6 (>60)
[2022-02-14] MEDS ORDERED: CALCIUM GLUCONATE 1GM/50ML NS 1 GM/50 ML BAG IV ONE (13:08)
[2022-02-14] MEDS ORDERED: Iohexol 350 (CONTRAST) 500 ML MDV IV ONE (13:21)
[2022-02-14 13:52] LABS: High Sensitivity Troponin 1 Hr 17 pg/mL (<15)
[2022-02-14 13:58] LABS: ABS Lymphocytes 0.9 10^3/ul (1.0-4.8); ABS Monocytes 0.6 10^3/ul (0-0.8); ABS Neutrophils 10.1 10^3/ul (1.5-7.7); Hematocrit 27 % (35-47); Hemoglobin 8.7 g/dL (12.0-16.0); Lymphocyte % 7.7 %; Mean Corpuscular HGB Conc 32 g/dL (31-36); Mean Corpuscular Hemoglobin 27 pg (27-31); Mean Corpuscular Volume 85 fL (80-97); Mean Platelet Volume 10.5 fL (7.4-10.4); Platelet Count 186 10^3/uL (150-450); Red Cell Distribution Width 14 % (10-15); White Blood Count 11.6 10^3/uL (3.5-10.8)
[2022-02-14] MEDS ORDERED: Pantoprazole 80 mg in NS BAG 80 MG/250 ML BAG IV ONE (15:18)
[2022-02-14 15:48] LABS: INR 4.35 (0.89-1.11)
[2022-02-14] MEDS ORDERED: Prothrombin Complex Conc. DOSE = Units Factor IX (nine) IV SLOW PU ONE (15:55)
[2022-02-14 15:58] LABS: Urine Appearance Clear; Urine Bilirubin Negative (Negative); Urine Blood 2+ (Negative); Urine Color Straw; Urine Glucose Negative (Negative); Urine Ketones Negative (Negative); Urine Nitrite Negative (Negative); Urine Protein Negative (Negative); Urine Specific Gravity 1.023 (1.002-1.030); Urine Urobilinogen Negative (Negative)
[2022-02-14 16:28] LABS: ABS Basophils 0.1 10^3/ul (0-0.2); ABS Monocytes 0.3 10^3/ul (0-0.8); ABS Neutrophils 10.2 10^3/ul (1.5-7.7); Hematocrit 25 % (35-47); Hemoglobin 8.2 g/dL (12.0-16.0); Lymphocyte % 8.7 %; Mean Corpuscular HGB Conc 33 g/dL (31-36); Mean Corpuscular Hemoglobin 28 pg (27-31); Mean Corpuscular Volume 86 fL (80-97); Mean Platelet Volume 9.6 fL (7.4-10.4); Platelet Count 170 10^3/uL (150-450); Red Blood Count 2.95 10^6 /uL (3.70-4.87); Red Cell Distribution Width 14 % (10-15); White Blood Count 11.6 10^3/uL (3.5-10.8)
[2022-02-14 17:05] LABS: ABS Basophils 0.1 10^3/ul (0-0.2); ABS Lymphocytes 1.1 10^3/ul (1.0-4.8); ABS Monocytes 0.3 10^3/ul (0-0.8); ABS Neutrophils 10.6 10^3/ul (1.5-7.7); Eosinophil % 0.1 %; Hematocrit 26 % (35-47); Hemoglobin 8.6 g/dL (12.0-16.0); Lymphocyte % 8.8 %; Mean Corpuscular HGB Conc 33 g/dL (31-36); Mean Corpuscular Hemoglobin 28 pg (27-31); Mean Corpuscular Volume 86 fL (80-97); Mean Platelet Volume 9.6 fL (7.4-10.4); Platelet Count 167 10^3/uL (150-450); Red Blood Count 3.06 10^6 /uL (3.70-4.87); Red Cell Distribution Width 14 % (10-15); White Blood Count 12.1 10^3/uL (3.5-10.8)
[2022-02-14 17:05] LABS: Urine Bacteria Absent (Absent); Urine Red Blood Cell Trace(0-2/hpf) (Absent); Urine Squamous Epithelial Cell Present (Absent); Urine White Blood Cell Absent (Absent)
[2022-02-14] MEDS ORDERED: Ondansetron 4 mg VIAL 2 MG/ML 2 ml VIAL IV PRN (17:24)
[2022-02-14] MEDS ORDERED: Piperacillin/Tazobac ADVAN 3.375 GM in NS 0.9% 100 ml BAG 100 ML IV ONE (17:36)
[2022-02-14] MEDS ORDERED: Zosyn per Pharmacy NOTE FOLLOW UP SCH (18:00)
[2022-02-14] MEDS ORDERED: Lactated Ringers 1000 ml BAG 1,000 ML IV ONE (18:17)
[2022-02-14 19:06] LABS: Calcium 8.2 mg/dL (8.6-10.3); Potassium 3.9 mmol/L (3.5-5.0); eGFR CKD-EPI 74.6 (>60)
[2022-02-14] MEDS ORDERED: Phytonadione IV (Adult) 2.5 MG in NS 0.9% 50 ML 50 ML IV ONE (19:45)
[2022-02-14 22:02] LABS: T4, Total 7.69 mcg/dL (6.09-12.23)
[2022-02-14] MEDS: Lactated Ringers 1000 ml BAG 1,000 ML IV SCH (22:05)
[2022-02-14 22:06] LABS: TSH Ultra Thyroid Stim Horm 1.83 mcIU/mL (0.34-5.60)
[2022-02-15] MEDS: ZOSYN 3.375 GM Q8H per EXTENDED INFUSION IV SCH ×4 (00:16→22:08)
[2022-02-15 01:01] LABS: Hematocrit 21 % (35-47)
[2022-02-15] MEDS: Acetaminophen IV 1 GM/100ML 1,000 MG/100 ML BAG IV PRN (02:25)
[2022-02-15 02:50] LABS: Hematocrit 20 % (35-47); Hemoglobin 6.6 g/dL (12.0-16.0)
[2022-02-15] MEDS: Pantoprazole 80 mg in NS BAG 80 MG/250 ML BAG IV SCH ×2 (05:11→14:35)
[2022-02-15 06:15] LABS: ABS Eosinophils 0.1 10^3/ul (0-0.6); ABS Lymphocytes 1.7 10^3/ul (1.0-4.8); ABS Monocytes 0.6 10^3/ul (0-0.8); ABS Neutrophils 6.5 10^3/ul (1.5-7.7); Eosinophil % 1.3 %; Hematocrit 19 % (35-47); Hemoglobin 6.5 g/dL (12.0-16.0); Lymphocyte % 19.2 %; Mean Corpuscular HGB Conc 33 g/dL (31-36); Mean Corpuscular Hemoglobin 29 pg (27-31); Mean Corpuscular Volume 86 fL (80-97); Mean Platelet Volume 9.7 fL (7.4-10.4); Nucleated Red Blood Cells % 0.1; Platelet Count 131 10^3/uL (150-450); Red Blood Count 2.26 10^6 /uL (3.70-4.87); Red Cell Distribution Width 15 % (10-15)
[2022-02-15 06:19] LABS: INR 2.63 (0.89-1.11)
[2022-02-15] MEDS: Lactated Ringers 1000 ml BAG 1,000 ML IV SCH (06:44)
[2022-02-15 06:46] LABS: Calcium 7.6 mg/dL (8.6-10.3); Magnesium 1.9 mg/dL (1.9-2.7); Potassium 3.5 mmol/L (3.5-5.0)
[2022-02-15] MEDS ORDERED: Magnesium Sulfate IV 1GM/100ML 1 GM/100 ML BAG IV ONE (07:06)
[2022-02-15] MEDS: KCL 20 MEQ/100 ML IVPREMIX 20 MEQ/100 ML BAG IV SCH ×2 (08:13→09:43)
[2022-02-15] MEDS ORDERED: CMCS: Brimonidine P 0.1%(NF) 1 DROP BTL BOTH EYES SCH (09:00)
[2022-02-15] MEDS ORDERED: Latanoprost 0.005% 2.5 ml BTL RIGHT EYE SCH (09:00)
[2022-02-15] MEDS ORDERED: fentaNYL 100 mcg/2 ml 50 MCG/ML VIAL ONE (13:00)
[2022-02-15] MEDS ORDERED: Midazolam 5 mg/5 ml VIAL 1 mg/ml 5 ml VIAL (5 mg) ONE (13:00)
[2022-02-15] MEDS ORDERED: PEG 3000 GI LAVAGE 1 GALLON PO ONE (14:44)
[2022-02-15 14:53] LABS: Hematocrit 31 % (35-47); Hemoglobin 10.2 g/dL (12.0-16.0)
[2022-02-15] MEDS ORDERED: Brimonidine P 0.1%(NF) 1 DROP BTL BOTH EYES SCH (21:00)
[2022-02-15] MEDS: Latanoprost 0.005% 2.5 ml BTL RIGHT EYE SCH (21:20)
[2022-02-15] MEDS: Brimonidine P 0.1%(NF) 1 DROP BTL BOTH EYES SCH (22:09)
[2022-02-15 23:22] LABS: Hematocrit 29 % (35-47); Hemoglobin 9.6 g/dL (12.0-16.0)
[2022-02-16 04:14] LABS: ABS Basophils 0.1 10^3/ul (0-0.2); ABS Eosinophils 0.4 10^3/ul (0-0.6); ABS Lymphocytes 1.1 10^3/ul (1.0-4.8); ABS Monocytes 0.7 10^3/ul (0-0.8); ABS Neutrophils 7.3 10^3/ul (1.5-7.7); Eosinophil % 4.4 %; Hematocrit 29 % (35-47); Hemoglobin 9.8 g/dL (12.0-16.0); Lymphocyte % 11.1 %; Mean Corpuscular HGB Conc 34 g/dL (31-36); Mean Corpuscular Hemoglobin 29 pg (27-31); Mean Corpuscular Volume 87 fL (80-97); Mean Platelet Volume 9.5 fL (7.4-10.4); Platelet Count 123 10^3/uL (150-450); Red Blood Count 3.36 10^6 /uL (3.70-4.87); Red Cell Distribution Width 14 % (10-15); White Blood Count 9.6 10^3/uL (3.5-10.8)
[2022-02-16 04:18] LABS: INR 1.9 (0.89-1.11)
[2022-02-16 04:48] LABS: Calcium 7.5 mg/dL (8.6-10.3); Potassium 3.2 mmol/L (3.5-5.0)
[2022-02-16] MEDS: ZOSYN 3.375 GM Q8H per EXTENDED INFUSION IV SCH ×3 (05:29→22:03)
[2022-02-16] MEDS ORDERED: Potassium Chlor 20 meq TAB.ER PO ONE (07:30)
[2022-02-16] MEDS: Pantoprazole VIAL 40 MG VIAL IV SCH (08:10)
[2022-02-16] MEDS: Brimonidine P 0.1%(NF) 1 DROP BTL BOTH EYES SCH ×2 (08:10→22:01)
[2022-02-16] MEDS ORDERED: Brimonidine P 0.1%(NF) 1 DROP BTL BOTH EYES SCH (09:00)
[2022-02-16] MEDS ORDERED: PEG 3000 GI LAVAGE 1 GALLON PO ONE (16:03)
[2022-02-16] MEDS: Latanoprost 0.005% 2.5 ml BTL RIGHT EYE SCH (22:02)
[2022-02-17] MEDS: Acetaminophen IV 1 GM/100ML 1,000 MG/100 ML BAG IV PRN ×3 (03:44→23:40)
[2022-02-17] MEDS: ZOSYN 3.375 GM Q8H per EXTENDED INFUSION IV SCH ×3 (05:27→23:33)
[2022-02-17 05:33] LABS: ABS Basophils 0.1 10^3/ul (0-0.2); ABS Eosinophils 0.1 10^3/ul (0-0.6); ABS Lymphocytes 0.6 10^3/ul (1.0-4.8); ABS Monocytes 0.9 10^3/ul (0-0.8); ABS Neutrophils 12.3 10^3/ul (1.5-7.7); Eosinophil % 0.5 %; Hematocrit 30 % (35-47); Hemoglobin 10.2 g/dL (12.0-16.0); Lymphocyte % 4.2 %; Mean Corpuscular HGB Conc 34 g/dL (31-36); Mean Corpuscular Hemoglobin 30 pg (27-31); Mean Corpuscular Volume 87 fL (80-97); Mean Platelet Volume 9.8 fL (7.4-10.4); Platelet Count 141 10^3/uL (150-450); Red Blood Count 3.46 10^6 /uL (3.70-4.87); Red Cell Distribution Width 14 % (10-15); White Blood Count 13.9 10^3/uL (3.5-10.8)
[2022-02-17 06:27] LABS: Calcium 7.6 mg/dL (8.6-10.3); Magnesium 1.8 mg/dL (1.9-2.7); eGFR CKD-EPI 89.2 (>60)
[2022-02-17] MEDS: KCL 20 MEQ/100 ML IVPREMIX 20 MEQ/100 ML BAG IV SCH ×3 (07:18→12:16)
[2022-02-17] MEDS ORDERED: Morphine 2 MG/ML SYRINGE IV ONE ×2 (07:52→21:48)
[2022-02-17] MEDS: Brimonidine P 0.1%(NF) 1 DROP BTL BOTH EYES SCH ×2 (09:08→22:04)
[2022-02-17] MEDS: Pantoprazole VIAL 40 MG VIAL IV SCH (09:08)
[2022-02-17 09:12] LABS: INR 1.6 (0.89-1.11)
[2022-02-17 10:08] LABS: High Sensitivity Troponin 1 Hr 34 pg/mL (<15)
[2022-02-17] MEDS ORDERED: Midazolam 5 mg/ml concentrated 5 mg/ml 1 ml VIAL ONE (15:49)
[2022-02-17] MEDS ORDERED: fentaNYL 100 mcg/2 ml 50 MCG/ML VIAL ONE (15:50)
[2022-02-17] MEDS ORDERED: Midazolam 5 mg/5 ml VIAL 1 mg/ml 5 ml VIAL (5 mg) ONE (15:57)
[2022-02-17] MEDS ORDERED: Warfarin per PHARMACY **NOTE FOLLOW UP SCH (18:00)
[2022-02-17] MEDS ORDERED: Al Hydrox/Mg Hydrox/Simet LIQ 30 ML UDC PO PRN (21:32)
[2022-02-17] MEDS ORDERED: Metoprolol Tartrate 5 mg VIAL 5 ml VIAL (1 mg/ml) IV ONE (21:35)
[2022-02-17] MEDS: Latanoprost 0.005% 2.5 ml BTL RIGHT EYE SCH (22:04)
[2022-02-17 23:00] LABS: Calcium 7.8 mg/dL (8.6-10.3); Magnesium 1.6 mg/dL (1.9-2.7); Potassium 3.5 mmol/L (3.5-5.0); eGFR CKD-EPI 73.5 (>60)
[2022-02-17] MEDS ORDERED: Magnesium Sulfate 2 gm BAG 2 GM/50 ML BAG IVPB ONE (23:23)
[2022-02-17] MEDS ORDERED: Potassium Chlor 20 meq TAB.ER PO ONE (23:25)
[2022-02-18] MEDS ORDERED: Metoprolol Tartrate 5 mg VIAL 5 ml VIAL (1 mg/ml) IV ONE ×2 (02:37→03:21)
[2022-02-18] MEDS ORDERED: Amiodarone 150 mg IVPREMIX 150 MG/100 ML BAG IV ONE (04:06)
[2022-02-18 05:06] LABS: Hematocrit 30 % (35-47); Hemoglobin 10.1 g/dL (12.0-16.0); Mean Corpuscular HGB Conc 34 g/dL (31-36); Mean Corpuscular Hemoglobin 29 pg (27-31); Mean Corpuscular Volume 88 fL (80-97); Mean Platelet Volume 9.6 fL (7.4-10.4); Platelet Count 146 10^3/uL (150-450); Red Blood Count 3.43 10^6 /uL (3.70-4.87); Red Cell Distribution Width 15 % (10-15)
[2022-02-18 05:11] LABS: INR 1.71 (0.89-1.11)
[2022-02-18 05:55] LABS: Calcium 7.5 mg/dL (8.6-10.3); Magnesium 2.3 mg/dL (1.9-2.7); Potassium 3.5 mmol/L (3.5-5.0); eGFR CKD-EPI 88.5 (>60)
[2022-02-18] MEDS ORDERED: Potassium Chlor 20 meq TAB.ER PO ONE (06:13)
[2022-02-18] MEDS: ZOSYN 3.375 GM Q8H per EXTENDED INFUSION IV SCH ×2 (06:33→16:13)
[2022-02-18] MEDS ORDERED: OLMESARTAN HYDROCHLOROTHIAZIDE PO SCH (09:00)
[2022-02-18] MEDS: Brimonidine P 0.1%(NF) 1 DROP BTL BOTH EYES SCH ×2 (09:19→20:33)
[2022-02-18] MEDS: Pantoprazole VIAL 40 MG VIAL IV SCH (09:19)
[2022-02-18] MEDS ORDERED: Albuterol/Ipratropium NEB.SOL (2.5/0.5 MG) 3 ML NEB.SOLN ONE (11:40)
[2022-02-18] MEDS: Acetaminophen IV 1 GM/100ML 1,000 MG/100 ML BAG IV PRN ×2 (14:23→23:14)
[2022-02-18] MEDS ORDERED: Furosemide 40 mg/4 ml IV VIAL IV ONE (15:57)
[2022-02-18 16:28] LABS: Body Fluid Appearance Cloudy; Body Fluid Color Yellow; Body Fluid Source Pleural Fluid
[2022-02-18] MEDS: Linezolid 600 MG IVPREMIX(*) 600 MG/300 ML BAG IVPB SCH (16:31)
[2022-02-18 17:42] LABS: Total Protein 5.2 g/dL (6.4-8.9)
[2022-02-18 18:26] LABS: Body Fluid WBC 2206 /mcL
[2022-02-18 18:29] LABS: Body Fluid Band 2 %; Body Fluid Mono 1 %; Body Fluid Other Cells 83; Body Fluid Total Cells Counted 200
[2022-02-18] MEDS ORDERED: Albuterol/Ipratropium NEB.SOL (2.5/0.5 MG) 3 ML NEB.SOLN INH SCH (19:00)
[2022-02-18] MEDS: Latanoprost 0.005% 2.5 ml BTL RIGHT EYE SCH (20:33)
[2022-02-19] MEDS ORDERED: Albuterol/Ipratropium NEB.SOL (2.5/0.5 MG) 3 ML NEB.SOLN INH PRN (04:15)
[2022-02-19] MEDS: Linezolid 600 MG IVPREMIX(*) 600 MG/300 ML BAG IVPB SCH (05:10)
[2022-02-19 06:09] LABS: Hematocrit 31 % (35-47); Hemoglobin 10.3 g/dL (12.0-16.0); Mean Corpuscular HGB Conc 33 g/dL (31-36); Mean Corpuscular Hemoglobin 29 pg (27-31); Mean Corpuscular Volume 89 fL (80-97); Mean Platelet Volume 10.2 fL (7.4-10.4); Platelet Count 165 10^3/uL (150-450); Red Blood Count 3.51 10^6 /uL (3.70-4.87); Red Cell Distribution Width 15 % (10-15); White Blood Count 11.2 10^3/uL (3.5-10.8)
[2022-02-19 06:28] LABS: INR 1.92 (0.89-1.11)
[2022-02-19 06:30] LABS: Magnesium 2.2 mg/dL (1.9-2.7); Potassium 3.4 mmol/L (3.5-5.0); eGFR CKD-EPI 86.6 (>60)
[2022-02-19] MEDS: Pantoprazole VIAL 40 MG VIAL IV SCH (08:15)
[2022-02-19] MEDS: Acetaminophen IV 1 GM/100ML 1,000 MG/100 ML BAG IV PRN (08:16)
[2022-02-19] MEDS ORDERED: Potassium Chlor 20 meq TAB.ER PO ONE (10:05)
[2022-02-19] MEDS ORDERED: Potassium Chloride LIQUID 20 MEQ/15 ML LIQUID PO ONE (11:06)
[2022-02-19] MEDS: Brimonidine P 0.1%(NF) 1 DROP BTL BOTH EYES SCH ×2 (11:28→20:14)
[2022-02-19] MEDS: Latanoprost 0.005% 2.5 ml BTL RIGHT EYE SCH (20:14)
[2022-02-20] MEDS: Warfarin DAILY REMINDER **NOTE FOLLOW UP SCH ×2 (04:29→16:50)
[2022-02-20] MEDS: Acetaminophen IV 1 GM/100ML 1,000 MG/100 ML BAG IV PRN (04:40)
[2022-02-20 05:52] LABS: ABS Basophils 0.1 10^3/ul (0-0.2); ABS Eosinophils 0.5 10^3/ul (0-0.6); ABS Lymphocytes 0.9 10^3/ul (1.0-4.8); ABS Monocytes 0.9 10^3/ul (0-0.8); ABS Neutrophils 7.2 10^3/ul (1.5-7.7); Eosinophil % 5.5 %; Hematocrit 30 % (35-47); Hemoglobin 10.4 g/dL (12.0-16.0); Mean Corpuscular HGB Conc 34 g/dL (31-36); Mean Corpuscular Hemoglobin 30 pg (27-31); Mean Corpuscular Volume 88 fL (80-97); Mean Platelet Volume 9.9 fL (7.4-10.4); Platelet Count 198 10^3/uL (150-450); Red Blood Count 3.45 10^6 /uL (3.70-4.87); Red Cell Distribution Width 14 % (10-15); White Blood Count 9.6 10^3/uL (3.5-10.8)
[2022-02-20 05:54] LABS: INR 1.86 (0.89-1.11)
[2022-02-20 06:02] LABS: Calcium 8.2 mg/dL (8.6-10.3); Potassium 3.6 mmol/L (3.5-5.0); eGFR CKD-EPI 89.2 (>60)
[2022-02-20] MEDS: Brimonidine P 0.1%(NF) 1 DROP BTL BOTH EYES SCH ×2 (09:09→20:11)
[2022-02-20] MEDS: Pantoprazole VIAL 40 MG VIAL IV SCH (09:14)
[2022-02-20 12:01] LABS: ABS Eosinophils 0.3 10^3/ul (0-0.6); ABS Lymphocytes 0.5 10^3/ul (1.0-4.8); ABS Monocytes 0.6 10^3/ul (0-0.8); ABS Neutrophils 5.5 10^3/ul (1.5-7.7); Hematocrit 33 % (35-47); Hemoglobin 9.8 g/dL (12.0-16.0); Lymphocyte % 7.4 %; Mean Corpuscular HGB Conc 30 g/dL (31-36); Mean Corpuscular Hemoglobin 26 pg (27-31); Mean Corpuscular Volume 88 fL (80-97); Platelet Count 219 10^3/uL (150-450); Red Blood Count 3.77 10^6 /uL (3.70-4.87); Red Cell Distribution Width 15 % (10-15); White Blood Count 6.9 10^3/uL (3.5-10.8)
[2022-02-20 12:43] LABS: eGFR CKD-EPI 87.9 (>60)
[2022-02-20] MEDS: Heparin DRIP 25,000 UNITS BAG 25,000 UNITS/500 ML BAG IV SCH (12:54)
[2022-02-20] MEDS ORDERED: Heparin 5000 UNITS/ML 1 mL VIAL IV SCH (13:00)
[2022-02-20 13:34] LABS: Glucose, BF 208 mg/dL
[2022-02-20 13:38] LABS: Fluid Type, Protein, Total PLEURAL; Total Protein, BF 1.5 g/dL
[2022-02-20 14:30] LABS: Lactate Dehydrogenase, BF 109 U/L
[2022-02-20] MEDS: Latanoprost 0.005% 2.5 ml BTL RIGHT EYE SCH (20:10)
[2022-02-21] MEDS: Acetaminophen IV 1 GM/100ML 1,000 MG/100 ML BAG IV PRN (02:45)
[2022-02-21 07:17] LABS: ABS Basophils 0.1 10^3/ul (0-0.2); ABS Eosinophils 0.4 10^3/ul (0-0.6); ABS Lymphocytes 0.9 10^3/ul (1.0-4.8); ABS Monocytes 0.9 10^3/ul (0-0.8); ABS Neutrophils 4.7 10^3/ul (1.5-7.7); Eosinophil % 5.1 %; Hematocrit 31 % (35-47); Hemoglobin 10.4 g/dL (12.0-16.0); Lymphocyte % 12.7 %; Mean Corpuscular HGB Conc 34 g/dL (31-36); Mean Corpuscular Hemoglobin 30 pg (27-31); Mean Corpuscular Volume 88 fL (80-97); Mean Platelet Volume 8.7 fL (7.4-10.4); Platelet Count 233 10^3/uL (150-450); Red Blood Count 3.53 10^6 /uL (3.70-4.87); Red Cell Distribution Width 14 % (10-15); White Blood Count 6.9 10^3/uL (3.5-10.8)
[2022-02-21 07:28] LABS: INR 2.4 (0.89-1.11)
[2022-02-21] MEDS: Brimonidine P 0.1%(NF) 1 DROP BTL BOTH EYES SCH ×2 (08:55→20:00)
[2022-02-21] MEDS: Pantoprazole VIAL 40 MG VIAL IV SCH (08:55)
[2022-02-21] MEDS: Heparin DRIP 25,000 UNITS BAG 25,000 UNITS/500 ML BAG IV SCH (15:06)
[2022-02-21] MEDS: Warfarin DAILY REMINDER **NOTE FOLLOW UP SCH (17:50)
[2022-02-21] MEDS: Latanoprost 0.005% 2.5 ml BTL RIGHT EYE SCH (19:59)
[2022-02-22 07:23] LABS: ABS Basophils 0.1 10^3/ul (0-0.2); ABS Eosinophils 0.4 10^3/ul (0-0.6); ABS Neutrophils 3.1 10^3/ul (1.5-7.7); Eosinophil % 7.3 %; Hematocrit 31 % (35-47); Hemoglobin 10.6 g/dL (12.0-16.0); Lymphocyte % 17.7 %; Mean Corpuscular HGB Conc 34 g/dL (31-36); Mean Corpuscular Hemoglobin 30 pg (27-31); Mean Corpuscular Volume 87 fL (80-97); Mean Platelet Volume 8.6 fL (7.4-10.4); Nucleated Red Blood Cells % 0.3; Platelet Count 245 10^3/uL (150-450); Red Cell Distribution Width 15 % (10-15); White Blood Count 5.6 10^3/uL (3.5-10.8)
[2022-02-22 07:26] LABS: INR 2.64 (0.89-1.11)
[2022-02-22 08:03] LABS: eGFR CKD-EPI 86.9 (>60)
[2022-02-22] MEDS: Pantoprazole VIAL 40 MG VIAL IV SCH (09:00)
[2022-02-22] MEDS: Brimonidine P 0.1%(NF) 1 DROP BTL BOTH EYES SCH (09:04)
[2022-02-22 13:43] VITALS: BP 135/50
[2022-02-23 11:10] LABS: Fluid Type, Albumin PLEURAL
== END 2022-02-22 14:47 | disposition home or self-care (01) | DRG 378 ==
LOC: ED 11:50 → EDHOLD 17:19 → SUATTDRO 17:19 → ICU 20:15 → MEDTELE 02-19 04:36
PROVIDERS: ADMIT Surgery Surgical Critical Care; ATTEND Internal Medicine